=== PATIENT | female | born 1955 | race Caucasian/White ===

== ENCOUNTER 2016-06-14 13:20 | Outpatient (CLI) | payer BC | END 2016-06-14 13:21 | disposition home or self-care (01) | DX: Z12.31 Encounter for screening mammogram for malignant neoplasm of breast (principal); Z80.3 Family history of malignant neoplasm of breast ==

== ENCOUNTER 2016-06-14 13:21 | Outpatient (CLI) | payer BC | END 2016-06-14 13:22 | disposition home or self-care (01) | DX: R91.1 Solitary pulmonary nodule (principal); E87.1 Hypo-osmolality and hyponatremia; F17.200 Nicotine dependence, unspecified, uncomplicated ==

== ENCOUNTER 2016-08-22 13:40 | Emergency (ER) | payer BC ==
[2016-08-22] MEDS ORDERED: LORazepam 0.5 MG TABLET PO STA (13:46)
[2016-08-22] MEDS ORDERED: LORazepam 0.5 MG TABLET ONE (13:58)
== END 2016-08-22 14:03 | disposition home or self-care (01) ==
DX: F41.9 Anxiety disorder, unspecified (principal); W18.30XA Fall on same level, unspecified, initial encounter; Y92.239 Unspecified place in hospital as the place of occurrence of the external cause; I10 Essential (primary) hypertension; F17.200 Nicotine dependence, unspecified, uncomplicated
CPT/HCPCS: 99283; A9270

== ENCOUNTER 2016-10-11 12:19 | Emergency (ER) | payer BC ==
[2016-10-11 12:55] LABS: BASOPHILS % (AUTO) 0.3 %; EOSINOPHILS % (AUTO) 0.1 %; HCT - HEMATOCRIT 40.3 % (37.0-47.0); HGB - HEMOGLOBIN 14.1 g/dL (12.0-16.0); LYMPHOCYTES # (AUTO) 0.9 10^3/uL (1.5-3.5); LYMPHOCYTES % (AUTO) 6.8 %; MEAN CORPUSCULAR HEMOGLOBIN 31.7 pg (27.0-31.0); MEAN CORPUSCULAR HGB CONC 34.9 g/dL (32.0-36.0); MEAN PLATELET VOLUME 7.9 fL (7.9-10.8); MONOCYTES # (AUTO) 2.1 10^3/uL (0.0-1.0); MONOCYTES % (AUTO) 16.2 %; NEUTROPHILS % (AUTO) 76.6 %; RED BLOOD COUNT 4.43 10^6/uL (4.20-5.40); RED CELL DISTRIBUTION WIDTH 13.2 % (12.0-15.0)
[2016-10-11 13:09] LABS: ALBUMIN/GLOBULIN RATIO 1.1 (1.0-2.2); BILIRUBIN,TOTAL 1.3 mg/dL (0.2-1.0); CALCIUM 9.2 mg/dL (8.5-10.3); CREATININE 0.6 mg/dL (0.4-1.0); POTASSIUM 3.2 mmol/L (3.5-5.0); TOTAL PROTEIN 7.4 g/dL (6.7-8.2)
[2016-10-11] MEDS ORDERED: ONDANSETRON 4 MG/2 ML VIAL IVP STA (15:00)
[2016-10-11] MEDS ORDERED: ACETAMINOPHEN 1,000 MG/100 ML 100 ML IV STA (15:00)
[2016-10-11] MEDS ORDERED: LORazepam 0.5 MG TABLET PO STA (15:00)
--- NOTE | 2016-10-11 15:05 | ED Physician Documentation ---
History of Present Illness - Stated complaint Stated Complaint: FEVER,NOT EATING,ABD PAIN - Chief complaint Chief Complaint: Abd Pain - Additonal information Additional information: hx from pt 60 female to ER with fever generalized weakness NV vague abd discomfort dysuria and a cough for 5 days loose BM not diarrhea no blood no ill contacts travel or bad food pshx hyst and nissn fundoplication Review of Systems Constitutional: reports: Fever Cardiac: denies: Chest pain / pressure Respiratory: reports: Cough GI: reports: Abdominal Pain (discomfort not specifically painful), Nausea, Vomiting. denies: Diarrhea (loose not watery no blood), Bloody / black stool : reports: Dysuria Neurologic: reports: Generalized weakness. 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 - Present Medications Home Medications: Ambulatory Orders Medication Instructions Recorded Confirmed Amlodipine/Atorvastatin [Caduet 10 1 each PO DAILY 01/14/13 10/11/16 mg-10 mg Tablet] DULoxetine [Cymbalta] 60 mg PO DAILY 01/14/13 10/11/16 Esomeprazole Magnesium [Nexium] 40 mg PO DAILY 01/14/13 10/11/16 Fluticasone/Salmeterol [Advair 1 each IH DAILY 01/14/13 10/11/16 250-50 Diskus] Ipratropium/Albuterol Inhaler 1 puffs INH QID 01/14/13 10/11/16 [Combivent Inhaler] LORazepam INTENSOL [Ativan] 1 mg PO BID PRN 01/14/13 10/11/16 Propranolol [Inderal] 40 mg PO DAILY 01/14/13 10/11/16 Tiotropium [Spiriva] 1 puffs INH DAILY 01/14/13 10/11/16 oxyCODONE [Roxicodone] 5 mg PO Q6H PRN #10 tablet 05/12/16 10/11/16 Cephalexin [Keflex] 500 mg PO Q6H #40 capsule 10/11/16 Fosinopril Sodium 10 mg PO DAILY 10/11/16 10/11/16 Ondansetron Odt [Zofran] 4 mg TL Q6H PRN #10 tablet 10/11/16 busPIRone [Buspar] 1 tab PO DAILY 10/11/16 10/11/16 oxyCODONE [Roxicodone] 5 mg PO Q8H PRN #10 tablet 10/11/16 - Allergies Allergies/Adverse Reactions: Allergies Allergy/AdvReac Type Severity Reaction Status Date / Time No Known Drug Allergies Allergy Verified 10/11/16 12:23 - Social History Does the pt smoke?: Yes Smoking Status: Current every day smoker Does the pt drink ETOH?: Yes Does the pt have substance abuse?: No - Immunizations Immunizations are current?: Yes - POLST Patient has POLST: No PD ED PE NORMAL - Vitals Vital signs reviewed: Yes - General General: Alert and oriented X 3 - Neck Neck: Supple, no meningeal sign - Cardiac Cardiac: RRR - Respiratory Respiratory: No respiratory distress - Abdomen Abdomen: Soft, Non tender, Other (hyperactive BS, mild distension, no sig TTP) - Back Back: No: No CVA TTP - Derm Derm: Normal color - Extremities Extremities: No deformity - Neuro Neuro: Alert and oriented X 3, 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 president risk management 2-12 intact, No motor deficit, Normal speech Results - Vitals Vitals: Vital Signs - 24 hr 10/11/16 10/11/16 10/11/16 12:21 15:46 18:13 Temperature 36.3 C L Heart Rate 83 122 H 105 H Respiratory 18 20 18 Rate Blood Pressure 124/77 143/68 H 126/61 O2 Saturation 97 97 96 Oxygen O2 Source Room air - Labs Labs: Laboratory Tests 10/11/16 10/11/16 10/11/16 12:47 12:47 17:20 WBC 13.0 H RBC 4.43 Hgb 14.1 Hct 40.3 MCV 91.0 MCH 31.7 H MCHC 34.9 RDW 13.2 Plt Count 215 MPV 7.9 Neut # 10.0 H Lymph # 0.9 L Christian # 2.1 H Eos # 0.0 Baso # 0.0 Absolute Nucleated RBC 0.00 Nucleated RBCs 0.0 Sodium 121 L Potassium 3.2 L Chloride 83 L Carbon Dioxide 25 Anion Gap 13.0 BUN 8 Creatinine 0.6 Estimated GFR (MDRD) 102 Glucose 120 H Calcium 9.2 Total Bilirubin 1.3 H AST 33 ALT 27 Alkaline Phosphatase 102 Total Protein 7.4 Albumin 3.8 Globulin 3.6 Albumin/Globulin Ratio 1.1 Lipase 28 Urine Color YELLOW Urine Clarity CLOUDY Urine pH 6.0 Ur Specific [place] 1.010 Urine Protein TRACE Urine Glucose (UA) NEGATIVE Urine Ketones 15 H Urine Occult Blood SMALL H Urine Nitrite POSITIVE H Urine Bilirubin NEGATIVE Urine Urobilinogen 1 (NORMAL) Ur Leukocyte Esterase MODERATE H Urine RBC 6-10 H Urine WBC >25 H Ur Squamous Epith Cells MOD Squamous H Urine Bacteria Moderate H Ur Microscopic Review INDICATED Urine Culture Comments NOT INDICATED PD MEDICAL DECISION MAKING - ED course ED course: CT shows R kidney inflammation - possible recently passed stone, maybe pyelo? labs reviewed WBC 13, low Na not new but worse than normal, mildly low K repleted CXR neg waiting on UA pt feeling better after meds discussed hypo-na with hospitalist Dr Hoang - pt is weak nauseated etc but these sx could certainly be due to pyelo not Na - hospitalist and I discussed whether to admit pt and hospitalist advises that it pt is otherwise feeling better after IVF etc in ER and is tolerating PO could dc with close follow up Departure - Departure Disposition: Home, Self Care Clinical Impression: Pyelonephritis, Hyponatremia, Hypokalemia, Dehydration Instructions: ED Hyponatremia, ED Kidney Infec Female Follow-Up: Favio Yan DO [Primary Care Provider] - (Sunday ) Prescriptions: Cephalexin [Keflex] 500 mg PO Q6H #40 capsule oxyCODONE [Roxicodone] 5 mg PO Q8H PRN #10 tablet PRN Reason: Severe Pain Ondansetron Odt [Zofran] 4 mg TL Q6H PRN #10 tablet PRN Reason: Nausea / Vomiting Comments: The CT scan showed inflammation of the right kidney The chest xray was fine The blood work was mostly fine - your sodium and potassium are low again but that is not new. The urine test does confirm you have a kidney infection as suspected We gave you IV antibiotics in the ER and it is very important that you take the oral antibiotics at home for the next 10 days recommend tylenol and motrin for pain and fever - you can also take your oxycodone for pain if needed And I wrote a prescription for zofran to help with the nausea so you can stay hydrated - you need to drink fluids with electrolytes not just plain water - pedialyte would be a good choice Please follow up with your PMD Sunday to recheck your sodium level and again after finishing the antibiotics to repeat the urine test and be sure the infection is gone if you cannot see your doctor on Sunday please come back and see me in the ER to recheck your sodium level Return if worse - some kidney infections need to be admitted If you drink alcohol please cut down or stop - that can affect your electrolytes And also please have your PMD recheck your blood sugar - it was high today Discharge Date/Time: 10/11/16 19:15
[2016-10-11] MEDS ORDERED: ONDANSETRON 4 MG/2 ML VIAL ONE (15:07)
[2016-10-11] MEDS ORDERED: ACETAMINOPHEN 1,000 MG/100 ML 100 ML IV ONE (15:07)
[2016-10-11] MEDS ORDERED: LORazepam 0.5 MG TABLET ONE (15:07)
--- NOTE | 2016-10-11 16:00 | XRAY Preliminary Report ---
Exam: XR Chest 2 View PA/LAT IMPRESSION: Hyperinflation, otherwise unremarkable 2-view chest radiography. [facility] SITE ID: [id number]
--- NOTE | 2016-10-11 16:02 | XRAY Report ---
EXAM: CHEST RADIOGRAPHY EXAM DATE: 10/11/2016 03:15 PM. CLINICAL HISTORY: Cough. COMPARISON: 05/12/2016. TECHNIQUE: 2 views. FINDINGS: Lungs/Pleura: No focal opacities evident. No pleural effusion. No pneumothorax. Hyperinflated lungs. Mediastinum: Heart and mediastinal contours are unremarkable. Other: No bony abnormality. Upper lumbar spinal cord stimulator leads noted. IMPRESSION: Hyperinflation, otherwise unremarkable 2-view chest radiography. [facility] Referring Provider Line: [phone] SITE ID: [id number]
--- NOTE | 2016-10-11 16:15 | CT Preliminary Report ---
Exam: CT Abdomen/Pelvis W/O IMPRESSION: 1. Small hiatal hernia. 2. Right perinephric fat stranding concerning for inflammation or possibly recently passed stone, wit h no current stones or hydronephrosis. 3. Evidence of appendectomy and hysterectomy. [facility] SITE ID: [id number]
--- NOTE | 2016-10-11 16:18 | CT Report ---
EXAM: CT ABDOMEN AND PELVIS EXAM DATE: 10/11/2016 03:44 PM. CLINICAL HISTORY: Abdominal discomfort. COMPARISONS: 01/22/2014. TECHNIQUE: Routine helical CT imaging was performed through the abdomen and pelvis. IV contrast: None . Enteric contrast: No. Reconstructions: Coronal and sagittal. In accordance with CT protocol optimization, one or more of the following dose reduction techniques w ere utilized for this exam: automated exposure control, adjustment of mA and/or KV based on patient s ize, or use of iterative reconstructive technique. FINDINGS: Lung Bases: Small hiatal hernia, otherwise unremarkable. Liver: Normal. No masses. Gallbladder/Bile Ducts: Unremarkable. Spleen: Normal. Pancreas: Normal. Adrenal Glands: Normal. Kidneys: Unremarkable unenhanced left kidney. Right perinephric fat stranding without obstructing sto ne, mass, or hydronephrosis identified. Peritoneal Cavity/Bowel: Normal. No free fluid, free air or adenopathy. No masses or acute inflammato ry process. Clips from appendectomy. Pelvic Organs: Hysterectomy. Bladder unremarkable. Vasculature: No aortic enlargement. Moderate atherosclerotic calcification. Bones: Stable upper lumbar spinal cord stimulator lead. Other: None. IMPRESSION: 1. Small hiatal hernia. 2. Right perinephric fat stranding concerning for inflammation or possibly recently passed stone, wit h no current stones or hydronephrosis. 3. Evidence of appendectomy and hysterectomy. [facility] Referring Provider Line: [phone] SITE ID: [id number]
[2016-10-11] MEDS ORDERED: SODIUM CHLORIDE 0.9% 1,000 ML IV ONE (16:47)
[2016-10-11 17:28] LABS: BILIRUBIN,URINE NEGATIVE (NEGATIVE)
[2016-10-11 17:33] LABS: UA w/ MICROSCOPIC CHARGE YES
[2016-10-11 17:43] LABS: UR CULTURE IF IND NOT INDICATED; WBC,URINE >25 /HPF (0-5)
[2016-10-11] MEDS ORDERED: cefTRIAXone 1 GM in SODIUM CHLORIDE 0.9% MINIBAG 100 ML IV STA (18:10)
[2016-10-11 18:14] VITALS: BP 126/61
[2016-10-11] MEDS ORDERED: oxyCODONE 5 MG TABLET PO STA (18:25)
[2016-10-11] MEDS ORDERED: cefTRIAXone 1 GM VIAL ONE (18:25)
[2016-10-11] MEDS ORDERED: oxyCODONE 5 MG TABLET ONE (18:33)
[2016-10-11] MEDS ORDERED: POTASSIUM CHLORIDE 20 MEQ TABLET PO STA (18:41)
[2016-10-11] MEDS ORDERED: POTASSIUM CHLORIDE 20 MEQ TABLET PO ONE (19:02)
== END 2016-10-11 19:15 | disposition home or self-care (01) ==
LOC: ED 12:19
DX: N12 Tubulo-interstitial nephritis, not specified as acute or chronic (principal); E86.0 Dehydration; E87.1 Hypo-osmolality and hyponatremia; E87.6 Hypokalemia; R11.2 Nausea with vomiting, unspecified; I10 Essential (primary) hypertension; J44.9 Chronic obstructive pulmonary disease, unspecified; F17.200 Nicotine dependence, unspecified, uncomplicated
CPT/HCPCS: 36415; 71020; 74176; 80053; 81001; 83690; 85025; 96365; 96375; 99283; 99284; A9270; J0131; 81003; 87086

== ENCOUNTER 2016-12-08 11:48 | Outpatient (CLI) | payer BC | END 2016-12-08 11:49 | disposition home or self-care (01) | LOC: LAB 11:48 | PROVIDERS: ATTEND Family Medicine | DX: Z11.59 Encounter for screening for other viral diseases (principal) | CPT/HCPCS: 36415; 86803 ==

== ENCOUNTER 2017-03-01 11:20 | Emergency (ER) | payer BC ==
--- NOTE | 2017-03-01 13:56 | ED Physician Documentation ---
PD HPI BACK PAIN - Stated complaint Stated Complaint: RT SIDE PX - Chief complaint Chief Complaint: Back Pain - History obtained from History obtained from: Patient, Family - History of Present Illness Timing - onset: How many months ago (5) Timing - duration: Months (5) Timing - details: Gradual onset Pain level max: 8 Pain level now: 8 Location: Lower, Right Quality: Pain, Sharp Associated symptoms: No: Fever, Weakness, Numbness, Incontinent of urine, Unable to urinate, Hematuria, Incontinent of stool Improves with: Rest Worsened by: Movement Contributing factors: No: Lifting, Twisting, Trauma, Anticoagulated, Cancer, IVDA Similar symptoms before: Diagnosis (sciatica) Recently seen: Clinic (states is on 5mg oxycodone, but doesn't help.) - Additional information Additional information: has not had any imaging peformed Review of Systems Ten Systems: 10 systems reviewed and negative Constitutional: denies: Fever, Chills Nose: denies: Rhinorrhea / runny nose, Congestion Throat: denies: Sore throat Cardiac: denies: Chest pain / pressure Respiratory: denies: Cough GI: denies: Nausea, Vomiting, Diarrhea : denies: Dysuria, Frequency, Hesitancy, Unable to Void, Incontinent Skin: denies: Rash Musculoskeletal: denies: Neck pain Neurologic: denies: Focal weakness, Numbness, Headache, Head injury PD PAST MEDICAL HISTORY - Past Medical History Cardiovascular: Hypertension, High cholesterol Respiratory: COPD, Pneumonia Neuro: Other Endocrine/Autoimmune: None GI: GERD : None HEENT: None Psych: Depression Musculoskeletal: Fibromyalgia, Chronic back pain Derm: None - Past Surgical History Past Surgical History: Yes 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 - Present Medications Home Medications: Ambulatory Orders Medication Instructions Recorded Confirmed Amlodipine/Atorvastatin [Caduet 10 1 each PO DAILY 01/14/13 03/01/17 mg-10 mg Tablet] DULoxetine [Cymbalta] 60 mg PO DAILY 01/14/13 03/01/17 Esomeprazole Magnesium [Nexium] 40 mg PO DAILY 01/14/13 03/01/17 Fluticasone/Salmeterol [Advair 1 each IH DAILY 01/14/13 03/01/17 250-50 Diskus] Ipratropium/Albuterol Inhaler 1 puffs INH QID 01/14/13 03/01/17 [Combivent Inhaler] LORazepam INTENSOL [Ativan] 1 mg PO BID PRN 01/14/13 03/01/17 Propranolol [Inderal] 40 mg PO DAILY 01/14/13 03/01/17 Tiotropium [Spiriva] 1 puffs INH DAILY 01/14/13 03/01/17 Fosinopril Sodium 10 mg PO DAILY 10/11/16 03/01/17 Ondansetron Odt [Zofran] 4 mg TL Q6H PRN #10 tablet 10/11/16 03/01/17 busPIRone [Buspar] 1 tab PO DAILY 10/11/16 03/01/17 oxyCODONE [Roxicodone] 5 mg PO Q8H PRN #10 tablet 10/11/16 03/01/17 Cyclobenzaprine [Flexeril] 10 mg PO TID PRN #20 tablet 03/01/17 Lidocaine Patch 5% [Lidoderm Patch] 1 patch TOP DAILY PRN #10 patch 03/01/17 Meloxicam [Mobic] 7.5 mg PO BID PRN #20 tablet 03/01/17 - Allergies Allergies/Adverse Reactions: Allergies Allergy/AdvReac Type Severity Reaction Status Date / Time No Known Drug Allergies Allergy Verified 03/01/17 11:27 - Social History Does the pt smoke?: Yes Smoking Status: Current every day smoker Does the pt drink ETOH?: Yes Does the pt have substance abuse?: No - Immunizations Immunizations are current?: Yes - POLST Patient has POLST: No PD ED PE NORMAL - Vitals Vital signs reviewed: Yes - General General: Alert and oriented X 3, No acute distress, Well developed/nourished - HEENT HEENT: PERRL, Moist mucous membranes - Neck Neck: Supple, no meningeal sign - Cardiac Cardiac: RRR - Respiratory Respiratory: No respiratory distress, Clear bilaterally - Abdomen Abdomen: Soft, Non tender, Non distended - Back Back: Other (mild low lumbar TTP.) - Derm Derm: Warm and dry - Extremities Extremities: No tenderness to palpate, Normal ROM s pain, No edema, Other (TTP over the R buttock. NVI.) - Neuro Neuro: Alert and oriented X 3, milk tester 2-12 intact, No motor deficit, No sensory deficit - Psych Psych: Normal mood, Normal affect Results - Vitals Vitals: Vital Signs - 24 hr 03/01/17 03/01/17 11:24 15:32 Temperature 36.4 C L Heart Rate 84 89 Respiratory 16 14 Rate Blood Pressure 149/87 H 140/78 H O2 Saturation 100 98 Oxygen O2 Source Room air - Rads (name of study) L spine xray Radiology: Prelim report reviewed, EMP read contemporaneously, See rad report ( Partial transitional vertebra with left pseudoarthrosis. Degenerative and other chronic findings. No acute disease. ) R hip xray Radiology: Prelim report reviewed, EMP read contemporaneously, See rad report ( Normal pelvis and hip radiography. ) PD MEDICAL DECISION MAKING - ED course Complexity details: reviewed results, re-evaluated patient, considered differential (no cauda equina, no spinal epidural abscess, no fracture, no aortic dissection or evidence of aneursym rupture), d/w patient, d/w family ED course: Patient is a 61-year-old female who presents to the emergency department with sciatica, appears chronic. Has not had any imaging performed and stated that this has been different for the past 5 years than her history of back pain, therefore imaging was performed. No acute findings on imaging. Feels better after Toradol and Flexeril. Will mobic and flexeril for home as well. Ambulating well. No evidence of cauda equina. Patient counseled regarding signs and symptoms for which I believe and urgent re-evaluation would be necessary. Patient with good understanding of and agreement to plan and is comfortable going home at this time This document was made in part using voice recognition software. While efforts are made to proofread this document, sound alike and grammatical errors may occur. Departure - Departure Disposition: Home, Self Care Clinical Impression: Sciatica Qualifiers: Laterality: right Qualified Code(s): M54.31 - Sciatica, right side Condition: Good Instructions: ED Sciatica Follow-Up: Favio Yan DO [Primary Care Provider] - Within 1 week Prescriptions: Cyclobenzaprine [Flexeril] 10 mg PO TID PRN #20 tablet PRN Reason: Spasms Lidocaine Patch 5% [Lidoderm Patch] 1 patch TOP DAILY PRN #10 patch PRN Reason: pain Meloxicam [Mobic] 7.5 mg PO BID PRN #20 tablet PRN Reason: pain Comments: You can also try a foam roller at home to help relieve the pain in your muscles from the sciatica. Return if you worsen. Discharge Date/Time: 03/01/17 15:33
[2017-03-01] MEDS ORDERED: CYCLOBENZAPRINE 10 MG TABLET PO STA (14:07)
[2017-03-01] MEDS ORDERED: KETOROLAC 60 MG/2 ML VIAL IM STA (14:07)
[2017-03-01] MEDS ORDERED: KETOROLAC 60 MG/2 ML VIAL ONE (14:22)
[2017-03-01] MEDS ORDERED: CYCLOBENZAPRINE 10 MG TABLET PO ONE (14:22)
--- NOTE | 2017-03-01 14:50 | XRAY Preliminary Report ---
Exam: XR LUMBAR SPINE 2 VIEW IMPRESSION: 1. Partial transitional vertebra with left pseudoarthrosis. 2. Degenerative and other chronic findings. No acute disease. [facility] SITE ID: [id number]
--- NOTE | 2017-03-01 14:52 | XRAY Preliminary Report ---
Exam: XR HIP W/PELVIS 2-3V RT IMPRESSION: Normal pelvis and hip radiography. [facility] SITE ID: [id number]
--- NOTE | 2017-03-01 14:52 | XRAY Report ---
EXAM: LUMBOSACRAL SPINE RADIOGRAPHY EXAM DATE: 03/01/2017 02:39 PM. CLINICAL HISTORY: R low back pain, no injury. COMPARISONS: None. TECHNIQUE: 2 views. FINDINGS: Alignment: Normal. No spondylolisthesis or scoliosis. Bones: Hypertrophy of left L5 transverse process with pseudarthrosis S1 on the left. 4 other lumbar v ertebrae. No fractures or bone lesions. Disks: Normal. Disk heights are maintained. Facets: Degenerative changes most marked at L4-L5 and L5-S1. Sacroiliac Joints: Unremarkable. Soft Tissues: Neurostimulator on the left with intact leads entering the spine at the T11-T12 level, tip at L2. Vascular calcifications. IMPRESSION: 1. Partial transitional vertebra with left pseudoarthrosis. 2. Degenerative and other chronic findings. No acute disease. [facility] Referring Provider Line: [phone] SITE ID: [id number]
--- NOTE | 2017-03-01 14:54 | XRAY Report ---
EXAM: RIGHT HIP AND PELVIS RADIOGRAPHY EXAM DATE: 03/01/2017 02:38 PM. HISTORY: R hip pain, no injury. COMPARISONS: None. TECHNIQUE: 1 view of the pelvis and 1 view of the hip. FINDINGS: Bones: Normal. No fracture or bone lesion. Partial transitional vertebra with left pseudarthrosis as previously described. Joints: The bilateral hip, pubis symphysis, and sacroiliac joints are preserved. Soft Tissues: Unremarkable. IMPRESSION: Normal pelvis and hip radiography. [facility] Referring Provider Line: [phone] SITE ID: [id number]
[2017-03-01 15:34] VITALS: BP 140/78
== END 2017-03-01 15:33 | disposition home or self-care (01) ==
LOC: ED 11:20
DX: M54.31 Sciatica, right side (principal); I10 Essential (primary) hypertension; E78.00 Pure hypercholesterolemia, unspecified; M79.7 Fibromyalgia; F17.200 Nicotine dependence, unspecified, uncomplicated
CPT/HCPCS: 72100; 73502; 96372; 99283; 99284; A9270

== ENCOUNTER 2017-06-10 18:07 | Emergency (ER) | payer BC ==
[2017-06-10] MEDS ORDERED: SODIUM CHLORIDE 0.9% 1,000 ML IV ONE ×3 (18:28→21:27)
[2017-06-10 18:59] LABS: BASOPHILS # (AUTO) 0.1 10^3/uL (0.0-0.1); BASOPHILS % (AUTO) 0.8 %; EOSINOPHILS % (AUTO) 0.3 %; LYMPHOCYTES # (AUTO) 0.7 10^3/uL (1.5-3.5); LYMPHOCYTES % (AUTO) 8.3 %; MEAN CORPUSCULAR HEMOGLOBIN 31.2 pg (27.0-31.0); MEAN CORPUSCULAR HGB CONC 35.1 g/dL (32.0-36.0); MEAN PLATELET VOLUME 6.6 fL (7.9-10.8); MONOCYTES # (AUTO) 0.7 10^3/uL (0.0-1.0); NEUTROPHILS # (AUTO) 7.2 10^3/uL (1.5-6.6); NEUTROPHILS % (AUTO) 82.6 %; PLT - PLATELET COUNT 396 10^3/uL (130-450); RED BLOOD COUNT 4.18 10^6/uL (4.20-5.40); RED CELL DISTRIBUTION WIDTH 13.7 % (12.0-15.0); WHITE BLOOD COUNT 8.8 x10^3/uL (4.8-10.8)
[2017-06-10 19:13] LABS: ALBUMIN 3.1 g/dL (3.2-5.5); ALBUMIN/GLOBULIN RATIO 1.1 (1.0-2.2); BILIRUBIN,TOTAL 0.8 mg/dL (0.2-1.0); CALCIUM 8.2 mg/dL (8.5-10.3); CREATININE 0.6 mg/dL (0.4-1.0)
[2017-06-10] MEDS ORDERED: MORPHINE 2 MG/ML CARPUJECT IVP STA (19:59)
[2017-06-10] MEDS ORDERED: POTASSIUM BICARB 25 MEQ TABLET PO STA (19:59)
--- NOTE | 2017-06-10 20:07 | ED Physician Documentation ---
PD HPI ABD PAIN - Stated complaint Stated Complaint: DIARRHEA/SORE ON BOTTOM - Chief complaint Chief Complaint: Abd Pain - History obtained from History obtained from: Patient, Family - History of Present Illness Timing - onset: How many weeks ago (3) Timing - duration: Weeks (3) Timing - details: Gradual onset Pain level max: 7 Pain level now: 6 Quality: Aching, Pain, Other (rectal pain) Improved by: Other (nothing) Worsened by: Other (nothing) Associated symptoms: Diarrhea. No: Fever, Nausea, Vomiting, Hematemesis, Constipation, Melena, Hematochezia, Dysuria, Hematuria Similar symptoms before: Diagnosis (chronic diarrhea, unclear cause.) Recently seen: Not recently seen - Additional information Additional information: Patient is a 61-year-old female who presents to the emergency department with diarrhea for the past 3 weeks. She states 10-12 times a day. Nonbloody. Has developed rectal pain over the past few days as well. No fevers. No vomiting but occasional nausea. Has had diarrhea for several years, multiple colonoscopies and stool studies without cause found. She also states she has mild dysuria. Review of Systems Ten Systems: 10 systems reviewed and negative Constitutional: denies: Fever, Chills Nose: denies: Rhinorrhea / runny nose, Congestion Throat: denies: Sore throat Cardiac: denies: Chest pain / pressure Respiratory: denies: Cough, Wheezing Skin: denies: Rash Musculoskeletal: denies: Neck pain, Back pain Neurologic: denies: Headache PD PAST MEDICAL HISTORY - Past Medical History Cardiovascular: Hypertension, High cholesterol Respiratory: COPD, Pneumonia Neuro: Other Endocrine/Autoimmune: None GI: GERD : None HEENT: None Psych: Depression, Anxiety Musculoskeletal: Fibromyalgia, Chronic back pain Derm: None - Past Surgical History Past Surgical History: Yes 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 - Present Medications Home Medications: Ambulatory Orders Medication Instructions Recorded Confirmed Amlodipine/Atorvastatin [Caduet 10 1 each PO DAILY 01/14/13 03/01/17 mg-10 mg Tablet] DULoxetine [Cymbalta] 60 mg PO DAILY 01/14/13 03/01/17 Esomeprazole Magnesium [Nexium] 40 mg PO DAILY 01/14/13 03/01/17 Fluticasone/Salmeterol [Advair 1 each IH DAILY 01/14/13 03/01/17 250-50 Diskus] Ipratropium/Albuterol Inhaler 1 puffs INH QID 01/14/13 03/01/17 [Combivent Inhaler] LORazepam INTENSOL [Ativan] 1 mg PO BID PRN 01/14/13 03/01/17 Propranolol [Inderal] 40 mg PO DAILY 01/14/13 03/01/17 Tiotropium [Spiriva] 1 puffs INH DAILY 01/14/13 03/01/17 Fosinopril Sodium 10 mg PO DAILY 10/11/16 03/01/17 Ondansetron Odt [Zofran] 4 mg TL Q6H PRN #10 tablet 10/11/16 03/01/17 busPIRone [Buspar] 1 tab PO DAILY 10/11/16 03/01/17 oxyCODONE [Roxicodone] 5 mg PO Q8H PRN #10 tablet 10/11/16 03/01/17 Cyclobenzaprine [Flexeril] 10 mg PO TID PRN #20 tablet 03/01/17 Lidocaine Patch 5% [Lidoderm Patch] 1 patch TOP DAILY PRN #10 patch 03/01/17 Meloxicam [Mobic] 7.5 mg PO BID PRN #20 tablet 03/01/17 Cephalexin [Keflex] 500 mg PO Q6H #28 capsule 06/10/17 Hydrocortisone Acetate [Proctocort] 30 mg RC BID PRN #20 supp.rect 06/10/17 Nystatin/Triamcin 1 applic TP BID PRN #1 cream..g. 06/10/17 [Nystatin-Triamcinolone Cream] Potassium Bicarbonate 25 meq PO DAILY #10 tablet 06/10/17 [K-Effervescent] - Allergies Allergies/Adverse Reactions: Allergies Allergy/AdvReac Type Severity Reaction Status Date / Time No Known Drug Allergies Allergy Verified 03/01/17 11:27 - Social History Does the pt smoke?: Yes Smoking Status: Current every day smoker Does the pt drink ETOH?: Yes ETOH Use: Other (daily drinker. states 3-6 beers/wine per day. ) Does the pt have substance abuse?: No - Family History Family history: reports: Non contributory - Immunizations Immunizations are current?: Yes - POLST Patient has POLST: No PD ED PE NORMAL - Vitals Vital signs reviewed: Yes - General General: Alert and oriented X 3, No acute distress - HEENT HEENT: Other (dry lips) - Neck Neck: Supple, no meningeal sign - Cardiac Cardiac: RRR - Respiratory Respiratory: No respiratory distress, Clear bilaterally - Abdomen Abdomen: Soft, Non distended, Other (mild diffuse TTP. no peritoneal signs.) - Rectal Rectal: Other (small hemorrhoid, external. non-thrombosed. non-bleeding. Zeenat JORGENSEN present.) - Back Back: No spinal TTP - Derm Derm: Warm and dry, Other (diffuse erythematous skin breakdown on the buttocks and perineal area. ) - Extremities Extremities: No edema, No calf tenderness / cord - Neuro Neuro: Alert and oriented X 3 - Psych Psych: Normal mood, Normal affect Results - Vitals Vitals: Vital Signs - 24 hr 06/10/17 06/10/17 06/10/17 18:18 19:52 20:43 Temperature 36.2 C L 36.4 C L Heart Rate 130 H 111 H 95 Respiratory 18 20 20 Rate Blood Pressure 125/83 H 133/86 H 127/96 H O2 Saturation 99 99 99 06/10/17 21:34 Temperature 36.9 C Heart Rate 115 H Respiratory 20 Rate Blood Pressure 137/96 H O2 Saturation 100 Oxygen O2 Source Room air - Labs Labs: Laboratory Tests 06/10/17 06/10/17 06/10/17 18:53 18:53 20:43 WBC 8.8 RBC 4.18 L Hgb 13.0 Hct 37.2 MCV 89.0 MCH 31.2 H MCHC 35.1 RDW 13.7 Plt Count 396 MPV 6.6 L Neut # 7.2 H Lymph # 0.7 L [place] # 0.7 Eos # 0.0 Baso # 0.1 Absolute Nucleated RBC 0.01 Nucleated RBC % 0.1 Sodium 126 L Potassium 2.4 L* Chloride 88 L Carbon Dioxide 20 L Anion Gap 18.0 H BUN 5 L Creatinine 0.6 Estimated GFR (MDRD) 102 Glucose 109 H Calcium 8.2 L Total Bilirubin 0.8 AST 36 ALT 25 Alkaline Phosphatase 130 H Total Protein 6.0 L Albumin 3.1 L Globulin 2.9 Albumin/Globulin Ratio 1.1 Lipase 43 Urine Color YELLOW Urine Clarity CLOUDY Urine pH 6.0 Ur Specific [place] <=1.005 Urine Protein NEGATIVE Urine Glucose (UA) NEGATIVE Urine Ketones NEGATIVE Urine Occult Blood SMALL H Urine Nitrite POSITIVE H Urine Bilirubin NEGATIVE Urine Urobilinogen 0.2 (NORMAL) Ur Leukocyte Esterase LARGE H Urine RBC 6-10 H Urine WBC >25 H Ur Squamous Epith Cells NONE SEEN Urine Bacteria Many H Ur Microscopic Review INDICATED Urine Culture Comments INDICATED - Rads (name of study) CT abd/pelvis Radiology: Prelim report reviewed, EMP read contemporaneously, See rad report ( Trace free fluid in the pelvis of unclear significance. No abscess or pneumoperitoneum. 2. Fatty hypertrophy in the wall of the terminal ileum. Mildly prominent wall thickness of the sigmoid and left colon in the setting of incomplete distention. However, no significant adjacent fat stranding. Findings may be chronic. 3. Status post hysterectomy. 4. Small incidental hiatal hernia. ) PD MEDICAL DECISION MAKING - ED course Complexity details: reviewed old records, reviewed results, re-evaluated patient , considered differential, d/w patient, d/w family ED course: Patient is a 61-year-old female who presents to the emergency department with what appears to be worsening of her chronic diarrhea. She was unable to give a stool sample during her emergency department stay. We will place her on Proctocort for the hemorrhoids as well as a clotrimazole cream for barrier cream for her perineal area. She feels better after IV fluids. Has chronic hyponatremia. She also has chronic hypokalemia, potassium was replaced orally and will place on potassium for home. We will have her follow-up closely with her doctor for further evaluation and care. She is adamant that she does not want to stay in the hospital. She is also found to have a UTI, given an IV dose of Rocephin will place on Keflex for home. She is well-appearing, nontoxic. Afebrile. Heart rate decreased. Patient and family counseled regarding signs and symptoms for which I believe and urgent re-evaluation would be necessary. Patient with good understanding of and agreement to plan and is comfortable going home at this time This document was made in part using voice recognition software. While efforts are made to proofread this document, sound alike and grammatical errors may occur. Departure - Departure Disposition: 01 Home, Self Care Clinical Impression: Hyponatremia, Hypokalemia, Diarrhea, Dehydration Hemorrhoid Qualifiers: Hemorrhoid type: unspecified Qualified Code(s): K64.9 - Unspecified hemorrhoids Condition: Stable Instructions: Diarrhea, ED Hemorrhoids, ED Potassium Deficiency Follow-Up: Favio Yan DO [Primary Care Provider] - Within 3 Days Prescriptions: Cephalexin [Keflex] 500 mg PO Q6H #28 capsule Hydrocortisone Acetate [Proctocort] 30 mg RC BID PRN #20 supp.rect PRN Reason: rectal pain Nystatin/Triamcin [Nystatin-Triamcinolone Cream] 1 applic TP BID PRN #1 cream..g. PRN Reason: buttock rash Potassium Bicarbonate [K-Effervescent] 25 meq PO DAILY #10 tablet Comments: You need your sodium and potassium rechecked in 3 days with your doctor. Drink plenty of fluids. Return if you worsen. You would also likely benefit from seeing GI for your chronic diarrhea and medications to help manage this. Discharge Date/Time: 06/10/17 21:59
[2017-06-10] MEDS ORDERED: IOPAMIDOL-300 100 ML VIAL ONE (20:13)
[2017-06-10] MEDS ORDERED: MORPHINE 2 MG/ML CARPUJECT ONE (20:17)
[2017-06-10] MEDS ORDERED: IOPAMIDOL-300 100 ML VIAL IVP ONE (20:32)
[2017-06-10 20:52] LABS: BILIRUBIN,URINE NEGATIVE (NEGATIVE); GLUCOSE, URINE (UA) NEGATIVE (NEGATIVE); KETONES,URINE (UA) NEGATIVE (NEGATIVE); LEUKOCYTE ESTERASE, URINE LARGE (NEGATIVE); NITRITE,URINE POSITIVE (NEGATIVE); OCCULT BLOOD,URINE SMALL (NEGATIVE); PROTEIN,URINE NEGATIVE (NEGATIVE); UROBILINOGEN,URINE 0.2 (NORMAL) E.U./dL (NORMAL)
[2017-06-10 20:58] LABS: CLARITY,URINE CLOUDY (CLEAR)
[2017-06-10 21:08] LABS: BACTERIA,URINE Many /HPF (None Seen); SQUAMOUS EPITHELIAL CELL,UR NONE SEEN (<= Few)
[2017-06-10] MEDS ORDERED: cefTRIAXone 1 GM VIAL IVP STA (21:22)
--- NOTE | 2017-06-10 21:23 | CT Preliminary Report ---
Exam: CT ABDOMEN/PELVIS W/ IMPRESSION: 1. Trace free fluid in the pelvis of unclear significance. No abscess or pneumoperitoneum. 2. Fatty hypertrophy in the wall of the terminal ileum. A prominent wall thickness of the sigmoid and left colon the setting of incomplete distention. However, no significant adjacent fat stranding. Fin dings may be chronic. 3. Status post hysterectomy. 4. Small incidental hiatal hernia. [facility] SITE ID: [id number]
--- NOTE | 2017-06-10 21:36 | CT Report ---
EXAM: CT ABDOMEN AND PELVIS EXAM DATE: 06/10/2017 08:43 PM. CLINICAL HISTORY: Lower abdominal pain, diarrhea. COMPARISONS: 10/11/2016. TECHNIQUE: Routine helical CT imaging was performed through the abdomen and pelvis. IV contrast: 100 mL Isovue 300. Enteric contrast: No. Reconstructions: Coronal and sagittal. In accordance with CT protocol optimization, one or more of the following dose reduction techniques w ere utilized for this exam: automated exposure control, adjustment of mA and/or KV based on patient s ize, or use of iterative reconstructive technique. FINDINGS: Lung Bases: Lung bases are clear. Small hiatal hernia is noted. Liver: Fatty liver. No mass. Gallbladder/Bile Ducts: Unremarkable. Spleen: Normal. Pancreas: Normal. Adrenal Glands: Normal. Kidneys: Normal. No masses or hydronephrosis. Peritoneal Cavity/Bowel: No bowel dilation, pneumoperitoneum, ascites or bulky adenopathy. Previous a ppendectomy. Scattered colonic diverticula. The colonic wall of the sigmoid colon and left colon are mildly thickened in the setting of incomplete distention. No definite pericolonic inflammation noted. Mildly hyperemic mucosa and mild wall thickening in the terminal ileum. There is wall fatty hypertro phy in the terminal ileum. Again, no significant inflammation. Pelvic Organs: Uterus is absent. Normal bladder. No ascites, pelvic mass or adenopathy. Small amount of fluid is present in the pelvis. Vasculature: Diffuse atheromatous plaques are present in the abdominal aorta and branch vessels. No a neurysm. Normal IVC. Bones: Previous T11 and T12 laminectomy with placement of intrathecal device. No osteoblastic or oste olytic lesions. Other: None. IMPRESSION: 1. Trace free fluid in the pelvis of unclear significance. No abscess or pneumoperitoneum. 2. Fatty hypertrophy in the wall of the terminal ileum. Mildly prominent wall thickness of the sigmoi d and left colon in the setting of incomplete distention. However, no significant adjacent fat strand ing. Findings may be chronic. 3. Status post hysterectomy. 4. Small incidental hiatal hernia. [facility] Referring Provider Line: [phone] SITE ID: [id number]
[2017-06-10 21:44] VITALS: BP 137/96
== END 2017-06-10 21:59 | disposition home or self-care (01) ==
LOC: ED 18:07
DX: E87.1 Hypo-osmolality and hyponatremia (principal); E87.6 Hypokalemia; R19.7 Diarrhea, unspecified; E86.0 Dehydration; K64.9 Unspecified hemorrhoids; I10 Essential (primary) hypertension; E78.00 Pure hypercholesterolemia, unspecified; F17.200 Nicotine dependence, unspecified, uncomplicated
CPT/HCPCS: 36415; 74177; 80053; 81001; 83690; 85025; 87086; 87181; 96361; 96374; 96375; 99283; 99284; A9270; Q9967; 81003

== ENCOUNTER 2017-06-14 18:20 | Emergency (ER) | payer BC ==
--- NOTE | 2017-06-14 18:53 | ED Physician Documentation ---
PD HPI NVD - Stated complaint Stated Complaint: DIARRHEA - Chief complaint Chief Complaint: Abd Pain - History obtained from History obtained from: Patient, Family - History of Present Illness Timing - onset: Other (She has chronic recurrent diarrhea status post negative workups including colonoscopy. She was seen here recently for same, blood work was notable for significant hypokalemia which was repleted. She continues to have diarrhea and they note that now she has a rectal mass, they show me a picture on their phone and it is consistent with rectal prolapse. No abdominal pain.) Review of Systems Constitutional: denies: Fever, Chills Nose: denies: Rhinorrhea / runny nose, Congestion GI: reports: Diarrhea. 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 - Present Medications Home Medications: Ambulatory Orders Medication Instructions Recorded Confirmed Amlodipine/Atorvastatin [Caduet 10 1 each PO DAILY 01/14/13 03/01/17 mg-10 mg Tablet] DULoxetine [Cymbalta] 60 mg PO DAILY 01/14/13 03/01/17 Esomeprazole Magnesium [Nexium] 40 mg PO DAILY 01/14/13 03/01/17 Fluticasone/Salmeterol [Advair 1 each IH DAILY 01/14/13 03/01/17 250-50 Diskus] Ipratropium/Albuterol Inhaler 1 puffs INH QID 01/14/13 03/01/17 [Combivent Inhaler] LORazepam INTENSOL [Ativan] 1 mg PO BID PRN 01/14/13 03/01/17 Propranolol [Inderal] 40 mg PO DAILY 01/14/13 03/01/17 Tiotropium [Spiriva] 1 puffs INH DAILY 01/14/13 03/01/17 Fosinopril Sodium 10 mg PO DAILY 10/11/16 03/01/17 Ondansetron Odt [Zofran] 4 mg TL Q6H PRN #10 tablet 10/11/16 03/01/17 busPIRone [Buspar] 1 tab PO DAILY 10/11/16 03/01/17 oxyCODONE [Roxicodone] 5 mg PO Q8H PRN #10 tablet 10/11/16 03/01/17 Cyclobenzaprine [Flexeril] 10 mg PO TID PRN #20 tablet 03/01/17 Lidocaine Patch 5% [Lidoderm Patch] 1 patch TOP DAILY PRN #10 patch 03/01/17 Meloxicam [Mobic] 7.5 mg PO BID PRN #20 tablet 03/01/17 Cephalexin [Keflex] 500 mg PO Q6H #28 capsule 06/10/17 Hydrocortisone Acetate [Proctocort] 30 mg RC BID PRN #20 supp.rect 06/10/17 Nystatin/Triamcin 1 applic TP BID PRN #1 cream..g. 06/10/17 [Nystatin-Triamcinolone Cream] Potassium Bicarbonate 25 meq PO DAILY #10 tablet 06/10/17 [K-Effervescent] Cholestyramine [Questran] 4 gm PO DAILY #10 packet 06/14/17 Magnesium Oxide 400 mg PO BID #20 tablet 06/14/17 - Allergies Allergies/Adverse Reactions: Allergies Allergy/AdvReac Type Severity Reaction Status Date / Time No Known Drug Allergies Allergy Verified 03/01/17 11:27 - Social History Does the pt smoke?: Yes Smoking Status: Current every day smoker Does the pt drink ETOH?: Yes Does the pt have substance abuse?: No - Immunizations Immunizations are current?: Yes - POLST Patient has POLST: No PD ED PE NORMAL - Vitals Vital signs reviewed: Yes - General General: Alert and oriented X 3, No acute distress - Neck Neck: Supple, no meningeal sign, No bony TTP - Abdomen Abdomen: Normal bowel sounds, Soft, Non tender - Rectal Rectal: Other (Brie RN, v loose sphincter, no prolapse now.) - Extremities Extremities: No edema, No calf tenderness / cord - Neuro Neuro: Alert and oriented X 3, Normal speech - Psych Psych: Normal mood, Normal affect Results - Vitals Vitals: Vital Signs - 24 hr 06/14/17 18:25 Temperature 35.5 C L Heart Rate 109 H Respiratory 18 Rate Blood Pressure 131/73 H O2 Saturation 99 Oxygen O2 Source Room air - Labs Labs: Laboratory Tests 06/14/17 06/14/17 18:55 18:55 WBC 8.9 RBC 3.97 L Hgb 12.4 Hct 36.9 L MCV 93.0 MCH 31.3 H MCHC 33.7 RDW 14.1 Plt Count 421 MPV 6.8 L Neut # 6.5 Lymph # 1.5 [place] # 0.6 Eos # 0.2 Baso # 0.1 Absolute Nucleated RBC 0.00 Nucleated RBC % 0.0 Sodium 123 L Potassium 3.0 L Chloride 89 L Carbon Dioxide 22 Anion Gap 12.0 BUN < 5 L Creatinine 0.4 Estimated GFR (MDRD) 162 Glucose 110 H Calcium 7.3 L Magnesium 0.7 L* Total Bilirubin 0.3 AST 35 ALT 26 Alkaline Phosphatase 108 Total Protein 5.4 L Albumin 2.7 L Globulin 2.7 Albumin/Globulin Ratio 1.0 Lipase 22 Ethyl Alcohol 147.3 PD MEDICAL DECISION MAKING - ED course ED course: 61-year-old woman with history of subacute to chronic diarrhea with exacerbation , recent visit to the emergency department with significant electrolyte abnormalities returns with apparent rectal prolapse that is intermittent and not present on exam now and continued diarrhea. We collected a stool sample and sent to the lab for studies. Lab work notable now for significant hypomagnesemia and hyponatremia and moderate hypokalemia. The magnesium was repleted IV and she was given oral thiamine and IV fluids and oral potassium. I suspect many of her electrolyte imbalances are not from the diarrhea as much as they are from alcoholism corroborated by a blood alcohol of 147 tonight and cessation of alcohol was encouraged. Especially considering she is on chronic pain medication. Departure - Departure Disposition: 01 Home, Self Care Clinical Impression: Hypomagnesemia, Hyponatremia, Hypokalemia, Rectal prolapse Diarrhea Qualifiers: Diarrhea type: presumed infectious Qualified Code(s): R19.7 - Diarrhea, unspecified Alcohol intoxication Qualifiers: Complication of substance-induced condition: uncomplicated Qualified Code(s): F10.920 - Alcohol use, unspecified with intoxication, uncomplicated Condition: Good Record reviewed to determine appropriate education?: Yes Instructions: ED Alcohol Intoxication, ED Gastroenteritis Viral Prescriptions: Cholestyramine [Questran] 4 gm PO DAILY #10 packet Magnesium Oxide 400 mg PO BID #20 tablet Comments: Continue the potassium supplement. Also add the magnesium supplement. As discussed I think a lot of these issues you are dealing with will go away if you stop abusing alcohol. Return if worse. Follow-up with your physician. We will call if any of the stool studies are positive.
[2017-06-14 19:09] LABS: BASOPHILS # (AUTO) 0.1 10^3/uL (0.0-0.1); BASOPHILS % (AUTO) 1.1 %; EOSINOPHILS # (AUTO) 0.2 10^3/uL (0.0-0.7); EOSINOPHILS % (AUTO) 1.9 %; HGB - HEMOGLOBIN 12.4 g/dL (12.0-16.0); LYMPHOCYTES # (AUTO) 1.5 10^3/uL (1.5-3.5); LYMPHOCYTES % (AUTO) 16.8 %; MEAN CORPUSCULAR HEMOGLOBIN 31.3 pg (27.0-31.0); MEAN CORPUSCULAR HGB CONC 33.7 g/dL (32.0-36.0); MEAN PLATELET VOLUME 6.8 fL (7.9-10.8); MONOCYTES # (AUTO) 0.6 10^3/uL (0.0-1.0); NEUTROPHILS # (AUTO) 6.5 10^3/uL (1.5-6.6); NEUTROPHILS % (AUTO) 73.2 %; PLT - PLATELET COUNT 421 10^3/uL (130-450); RED BLOOD COUNT 3.97 10^6/uL (4.20-5.40); RED CELL DISTRIBUTION WIDTH 14.1 % (12.0-15.0); WHITE BLOOD COUNT 8.9 x10^3/uL (4.8-10.8)
[2017-06-14] MEDS ORDERED: CHOLESTYRAMINE 4 GM PACKET PO STA (19:09)
[2017-06-14] MEDS ORDERED: oxyCOD/ACETAMIN 5 MG/325 MG TABLET PO STA (19:09)
[2017-06-14 19:22] LABS: ALBUMIN 2.7 g/dL (3.2-5.5); ALKALINE PHOSPHATASE 108 IU/L (42-121); ALT ALANINE AMINOTRANSFERASE 26 IU/L (10-60); AST ASPARTATE AMINOTRANSFERASE 35 IU/L (10-42); BILIRUBIN,TOTAL 0.3 mg/dL (0.2-1.0); BUN - BLOOD UREA NITROGEN < 5 mg/dL (6-20); CALCIUM 7.3 mg/dL (8.5-10.3); CARBON DIOXIDE - CO2 22 mmol/L (21-32); CHLORIDE 89 mmol/L (101-111); CREATININE 0.4 mg/dL (0.4-1.0); GFR - MDRD 162 (>89); GLUCOSE 110 mg/dL (70-100); LIPASE 22 U/L (22-51); SODIUM 123 mmol/L (135-145); TOTAL PROTEIN 5.4 g/dL (6.7-8.2)
[2017-06-14 19:24] LABS: MAGNESIUM 0.7 mg/dL (1.7-2.8)
[2017-06-14] MEDS ORDERED: THIAMINE 100 MG TABLET PO STA (19:25)
[2017-06-14] MEDS ORDERED: MAGNESIUM SULFATE 2 GRAM 2 GM/50 ML BAG IV ONE (19:25)
[2017-06-14] MEDS ORDERED: POTASSIUM BICARB 25 MEQ TABLET PO STA (19:25)
[2017-06-14] MEDS ORDERED: SODIUM CHLORIDE 0.9% 1,000 ML IV ONE (19:31)
[2017-06-14 20:48] VITALS: BP 139/74
== END 2017-06-14 21:03 | disposition home or self-care (01) ==
LOC: ED 18:20
DX: E83.42 Hypomagnesemia (principal); E87.1 Hypo-osmolality and hyponatremia; E87.6 Hypokalemia; K62.3 Rectal prolapse; R19.7 Diarrhea, unspecified; F10.920 Alcohol use, unspecified with intoxication, uncomplicated; Y90.6 Blood alcohol level of 120-199 mg/100 ml; I10 Essential (primary) hypertension; E78.00 Pure hypercholesterolemia, unspecified; F17.200 Nicotine dependence, unspecified, uncomplicated
CPT/HCPCS: 36415; 80053; 80320; 83690; 83735; 85025; 87045; 87046; 87493; 96365; 99283; 99284; A9270

== ENCOUNTER 2017-11-07 03:02 | Emergency (ER) | payer BC ==
--- NOTE | 2017-11-07 03:56 | ED Physician Documentation ---
PD HPI DYSPNEA - Stated complaint Stated Complaint: COUGH,SOA - Chief complaint Chief Complaint: Resp - History obtained from History obtained from: Patient - History of Present Illness Timing - onset: How many days ago (2-3) Timing - details: Gradual onset, Intermittant Pain level max: 7 Pain level now: 2 Worsened by: Coughing Associated symptoms: Cough, Chest pain / discomfort Recently seen: Not recently seen - Additional information Additional information: complains of cough times two or three days, with mild left chest pain. Tonight she was lying in bed, turned to her left side, and had sudden, severe left chest wall pain. Chest pain is worse with palpation and coughing. Review of Systems Constitutional: reports: Reviewed and negative Cardiac: reports: Chest pain / pressure. denies: Palpitations, Pedal edema Respiratory: reports: Cough. 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 - Present Medications Home Medications: Ambulatory Orders Medication Instructions Recorded Confirmed Amlodipine/Atorvastatin [Caduet 10 1 each PO DAILY 01/14/13 03/01/17 mg-10 mg Tablet] DULoxetine [Cymbalta] 60 mg PO DAILY 01/14/13 03/01/17 Esomeprazole Magnesium [Nexium] 40 mg PO DAILY 01/14/13 03/01/17 Fluticasone/Salmeterol [Advair 1 each IH DAILY 01/14/13 03/01/17 250-50 Diskus] Ipratropium/Albuterol Inhaler 1 puffs INH QID 01/14/13 03/01/17 [Combivent Inhaler] LORazepam INTENSOL [Ativan] 1 mg PO BID PRN 01/14/13 03/01/17 Propranolol [Inderal] 40 mg PO DAILY 01/14/13 03/01/17 Tiotropium [Spiriva] 1 puffs INH DAILY 01/14/13 03/01/17 Fosinopril Sodium 10 mg PO DAILY 10/11/16 03/01/17 Ondansetron Odt [Zofran] 4 mg TL Q6H PRN #10 tablet 10/11/16 03/01/17 busPIRone [Buspar] 1 tab PO DAILY 10/11/16 03/01/17 oxyCODONE [Roxicodone] 5 mg PO Q8H PRN #10 tablet 10/11/16 03/01/17 Cyclobenzaprine [Flexeril] 10 mg PO TID PRN #20 tablet 03/01/17 Lidocaine Patch 5% [Lidoderm Patch] 1 patch TOP DAILY PRN #10 patch 03/01/17 Meloxicam [Mobic] 7.5 mg PO BID PRN #20 tablet 03/01/17 Cephalexin [Keflex] 500 mg PO Q6H #28 capsule 06/10/17 Hydrocortisone Acetate [Proctocort] 30 mg RC BID PRN #20 supp.rect 06/10/17 Nystatin/Triamcin 1 applic TP BID PRN #1 cream..g. 06/10/17 [Nystatin-Triamcinolone Cream] Potassium Bicarbonate 25 meq PO DAILY #10 tablet 06/10/17 [K-Effervescent] Cholestyramine [Questran] 4 gm PO DAILY #10 packet 06/14/17 Magnesium Oxide 400 mg PO BID #20 tablet 06/14/17 Nystatin/Triamcin 1 applic TP BID #3 cream..g. 06/14/17 [Nystatin-Triamcinolone Cream] oxyCODONE [Roxicodone] 5 mg PO Q6H PRN #14 tablet 11/07/17 - Allergies Allergies/Adverse Reactions: Allergies Allergy/AdvReac Type Severity Reaction Status Date / Time codeine Allergy Hives Verified 11/07/17 03:11 - Social History Does the pt smoke?: Yes Smoking Status: Current every day smoker Does the pt drink ETOH?: Yes Does the pt have substance abuse?: No - Immunizations Immunizations are current?: Yes - POLST Patient has POLST: No PD ED PE NORMAL - Vitals Vital signs reviewed: Yes - General General: Alert and oriented X 3, No acute distress (NAD at rest, but obvious painful distress with movement involving trunk, as well as with palpation of left chest wall), Well developed/nourished - Cardiac Cardiac: RRR, No murmur - Respiratory Respiratory: No respiratory distress, Clear bilaterally - Abdomen Abdomen: Soft, Non tender PD ED PE EXPANDED - Visual Whole body visual: 1 - tenderness (point-specific tenderness left anterolateral chest wall) Results - Vitals Vitals: Vital Signs - 24 hr 11/07/17 11/07/17 11/07/17 03:38 04:45 05:31 Heart Rate 94 91 92 Respiratory 18 16 16 Rate Blood Pressure 156/92 H 152/83 H 133/73 H O2 Saturation 95 97 96 Oxygen O2 Source Room air - Rads (name of study) chest with left ribs Radiology: Prelim report reviewed, See rad report PD MEDICAL DECISION MAKING - ED course Complexity details: reviewed results, re-evaluated patient, considered differential, d/w patient - Sepsis Event Vital Signs: Vital Signs - 24 hr 11/07/17 11/07/17 11/07/17 03:38 04:45 05:31 Heart Rate 94 91 92 Respiratory 18 16 16 Rate Blood Pressure 156/92 H 152/83 H 133/73 H O2 Saturation 95 97 96 Oxygen O2 Source Room air Departure - Departure Disposition: 01 Home, Self Care Clinical Impression: Bronchitis, Strain of chest wall Condition: Good Instructions: ED Upper Resp Infec No Abx Tx, ED Contusion Chest Wall Follow-Up: Favio Yan DO [Primary Care Provider] - Prescriptions: oxyCODONE [Roxicodone] 5 mg PO Q6H PRN #14 tablet PRN Reason: Pain Discharge Date/Time: 11/07/17 05:37
[2017-11-07] MEDS: oxyCODONE 5 MG TABLET PO STA (04:33)
--- NOTE | 2017-11-07 04:52 | XRAY Report ---
Procedure Date: 11/07/2017 Accession Number: [id number] / [id number] Procedure: XR - Ribs w/PA Chest LT CPT Code: FULL RESULT: EXAM: LEFT RIB RADIOGRAPHY EXAM DATE: 11/07/2017 04:30 AM. CLINICAL HISTORY: Cough, left chest wall pain. COMPARISON: CHEST 2 VIEW PA/LAT 10/11/2016 CHEST W/O 06/14/2016. TECHNIQUE: 1 view of the chest and 2 views of the ribs. FINDINGS: Bones: No displaced rib fracture seen. Possible old left third rib fracture anteriorly. Lungs: Emphysema. No focal opacities. No gross pneumothorax or large effusion. Mediastinum: Heart and mediastinal contours are unremarkable. Other: None. IMPRESSION: 1. No displaced rib fracture or complication from rib fracture seen. 2. Emphysema. [facility]
[2017-11-07 05:31] VITALS: BP 133/73
== END 2017-11-07 05:37 | disposition home or self-care (01) ==
LOC: ED 03:02
DX: J40 Bronchitis, not specified as acute or chronic (principal); S29.011A Strain of muscle and tendon of front wall of thorax, initial encounter; I10 Essential (primary) hypertension; E78.00 Pure hypercholesterolemia, unspecified; K21.9 Gastro-esophageal reflux disease without esophagitis; J44.9 Chronic obstructive pulmonary disease, unspecified; F17.200 Nicotine dependence, unspecified, uncomplicated
CPT/HCPCS: 71101; 99283; A9270

== ENCOUNTER 2018-01-21 13:57 | Outpatient (CLI) | payer BC ==
--- NOTE | 2018-01-21 16:03 | XRAY Report ---
Reason: COPD Procedure Date: 01/21/2018 Accession Number: [id number] / [id number] Procedure: XR - Chest 2 View X-Ray CPT Code: 60978 FULL RESULT: EXAM: CHEST RADIOGRAPHY EXAM DATE: 01/21/2018 02:32 PM. CLINICAL HISTORY: COPD. COMPARISON: Chest 10/11/2016. TECHNIQUE: 2 views. FINDINGS: Spinal stimulator is noted. Lungs/Pleura: No focal opacities evident. Interval opacification of the right posterior sulcus, possible effusion. Underlying process not excluded.. No pneumothorax. Normal volumes. There are large lung volumes and flattening of the diaphragms. Mediastinum: Heart and mediastinal contours are unremarkable. IMPRESSION: Interval opacity of the right posterior sulcus. Likely effusion. Underlying process is not excluded. Correlate clinically for pneumonia although other etiologies are not excluded. COPD. RADIA
== END 2018-01-21 13:58 | disposition home or self-care (01) ==
LOC: DI 13:57
PROVIDERS: ATTEND Internal Medicine
DX: J44.9 Chronic obstructive pulmonary disease, unspecified (principal)
CPT/HCPCS: 71046

== ENCOUNTER 2018-02-26 13:34 | Outpatient (CLI) | payer BC ==
--- NOTE | 2018-02-26 14:29 | XRAY Report ---
Reason: SMOKER,COPD Procedure Date: 02/26/2018 Accession Number: [id number] / [id number] Procedure: XR - Chest 2 View X-Ray CPT Code: 25976 FULL RESULT: EXAM: CHEST RADIOGRAPHY EXAM DATE: 02/26/2018 01:51 PM. CLINICAL HISTORY: SMOKER,COPD. Follow-up pneumonia. Persistent productive cough. COMPARISON: 01/21/2018 TECHNIQUE: 2 views. FINDINGS: Lungs/Pleura: No focal opacities evident. No pleural effusion. No pneumothorax. Hyperexpanded volumes. Mediastinum: Heart and mediastinal contours are unremarkable. Aortic arch calcification. Other: Healing left sixth rib fracture. Mild deformity left ninth lateral rib. Minor degenerative change in the spine with neural stimulator in place. IMPRESSION: No acute findings 2-view chest radiography. RADIA
== END 2018-02-26 13:35 | disposition home or self-care (01) ==
LOC: DI 13:34
PROVIDERS: ATTEND Internal Medicine
DX: J44.9 Chronic obstructive pulmonary disease, unspecified (principal); F17.200 Nicotine dependence, unspecified, uncomplicated
CPT/HCPCS: 71046

== ENCOUNTER 2018-07-18 12:40 | Outpatient (CLI) | payer BC | END 2018-07-18 12:41 | disposition critical access hospital (66) | LOC: EMS 12:40 | PROVIDERS: ATTEND Surgery | DX: R56.9 Unspecified convulsions (principal) | CPT/HCPCS: A0425; A0429 ==

== ENCOUNTER 2018-07-18 12:55 | Emergency (ER) | payer BC ==
[2018-07-18 13:10] VITALS: BP 143/83
[2018-07-18 13:37] LABS: BASOPHILS % (AUTO) 0.6 %; EOSINOPHILS # (AUTO) 0.1 10^3/uL (0.0-0.7); EOSINOPHILS % (AUTO) 1.1 %; HGB - HEMOGLOBIN 14.8 g/dL (12.0-16.0); LYMPHOCYTES % (AUTO) 11.7 %; MEAN CORPUSCULAR HEMOGLOBIN 31.1 pg (27.0-31.0); MEAN CORPUSCULAR HGB CONC 33.9 g/dL (32.0-36.0); MEAN CORPUSCULAR VOLUME 91.8 fL (81.0-99.0); MEAN PLATELET VOLUME 7.3 fL (7.9-10.8); MONOCYTES # (AUTO) 0.6 10^3/uL (0.0-1.0); MONOCYTES % (AUTO) 6.5 %; NEUTROPHILS # (AUTO) 6.9 10^3/uL (1.5-6.6); NEUTROPHILS % (AUTO) 80.1 %; PLT - PLATELET COUNT 301 10^3/uL (130-450); RED BLOOD COUNT 4.75 10^6/uL (4.20-5.40); RED CELL DISTRIBUTION WIDTH 14.3 % (12.0-15.0); WHITE BLOOD COUNT 8.7 x10^3/uL (4.8-10.8)
[2018-07-18] MEDS ORDERED: SODIUM CHLORIDE 0.9% 1,000 ML IV ONE (13:47)
[2018-07-18] MEDS ORDERED: ALBUTEROL NEB 2.5 MG/3 ML INH STA (13:47)
[2018-07-18] MEDS ORDERED: IPRATROPIUM/ALBUTEROL 3 ML NEB INH STA (13:47)
[2018-07-18 13:49] LABS: ALBUMIN 4.4 g/dL (3.2-5.5); ALBUMIN/GLOBULIN RATIO 1.4 (1.0-2.2); ALKALINE PHOSPHATASE 118 IU/L (42-121); ALT ALANINE AMINOTRANSFERASE 31 IU/L (10-60); AST ASPARTATE AMINOTRANSFERASE 51 IU/L (10-42); BILIRUBIN,TOTAL 0.7 mg/dL (0.2-1.0); BUN - BLOOD UREA NITROGEN 6 mg/dL (6-20); CALCIUM 9.2 mg/dL (8.5-10.3); CARBON DIOXIDE - CO2 25 mmol/L (21-32); CHLORIDE 93 mmol/L (101-111); CREATININE 0.5 mg/dL (0.4-1.0); GFR - MDRD 125 (>89); GLUCOSE 170 mg/dL (70-100); LIPASE 37 U/L (22-51); SODIUM 129 mmol/L (135-145); TOTAL PROTEIN 7.5 g/dL (6.7-8.2)
[2018-07-18] MEDS ORDERED: LORazepam 2 MG/ML VIAL IVP STA (13:53)
--- NOTE | 2018-07-18 14:44 | CT Report ---
Reason: sz Procedure Date: 07/18/2018 Accession Number: [id number] / [id number] Procedure: CT - HEAD WO CPT Code: FULL RESULT: EXAM: CT HEAD EXAM DATE: 07/18/2018 02:01 PM. CLINICAL HISTORY: Seizure COMPARISON: None. TECHNIQUE: Multiaxial CT images were obtained from the foramen magnum to the vertex. Reformats: Sagittal and coronal. IV contrast: None. In accordance with CT protocol optimization, one or more of the following dose reduction techniques were utilized for this exam: automated exposure control, adjustment of mA and/or KV based on patient size, or use of iterative reconstructive technique. FINDINGS: There is prominence of the extra-axial space overlying each cerebral convexity particularly superiorly. There is mild generalized cerebral atrophy present. No territorial loss of conrad-white matter differentiation is present. No intracranial mass or hemorrhage is present Focal areas of low attenuation are seen in the cerebral hemisphere white matter bilaterally. In addition there is more confluent low attenuation in the cerebral hemisphere white matter bilaterally. No mass is present in either orbit Mastoid air cells are well aerated No suspicious lytic or blastic region is present within the calvarium. IMPRESSION: 1. Generalized cerebral atrophy is present. 2. No intracranial mass or hemorrhage is present. 3. Suspect remote white matter lacunar infarcts and small vessel ischemic change in the cerebral hemisphere white matter bilaterally. RADIA
--- NOTE | 2018-07-18 15:11 | ED Physician Documentation ---
History of Present Illness - Stated complaint Stated Complaint: SEIZURE - Chief complaint Chief Complaint: Neuro - Additonal information Additional information: 62-year-old female who was brought to the emergency department after an episode of a seizure which was witnessed at home by her daughter. The daughter reports a generalized tonic-clonic activity which lasted less than a minute and was followed by postictal period. The patient apparently has no history of seizure disorder. The patient presently feels back to her normal self just tired. There was no tongue biting or loss of urine. The patient does drink daily but is not withdrawing and consumed alcohol this morning. The patient has no desire to withdrawal from alcohol. The patient denies any new [id number] medications or prescription medications and denies recreational drug use. No other associated symptoms. Review of Systems Constitutional: denies: Fever, Chills Eyes: denies: Discharge Ears: denies: Ear pain Nose: denies: Congestion Throat: denies: Sore throat Cardiac: denies: Chest pain / pressure Respiratory: reports: Wheezing (The patient has chronic COPD and has not used her normal treatment today). denies: Cough GI: denies: Abdominal Pain : denies: Dysuria Skin: denies: Rash Musculoskeletal: denies: Neck pain Neurologic: reports: Seizure. 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 - Present Medications Home Medications: Ambulatory Orders Medication Instructions Recorded Confirmed Amlodipine/Atorvastatin [Caduet 10 1 each PO DAILY 01/14/13 03/01/17 mg-10 mg Tablet] DULoxetine [Cymbalta] 60 mg PO DAILY 01/14/13 03/01/17 Esomeprazole Magnesium [Nexium] 40 mg PO DAILY 01/14/13 03/01/17 Fluticasone/Salmeterol [Advair 1 each IH DAILY 01/14/13 03/01/17 250-50 Diskus] Ipratropium/Albuterol Inhaler 1 puffs INH QID 01/14/13 03/01/17 [Combivent Inhaler] LORazepam INTENSOL [Ativan] 1 mg PO BID PRN 01/14/13 03/01/17 Propranolol [Inderal] 40 mg PO DAILY 01/14/13 03/01/17 Tiotropium [Spiriva] 1 puffs INH DAILY 01/14/13 03/01/17 Fosinopril Sodium 10 mg PO DAILY 10/11/16 03/01/17 Ondansetron Odt [Zofran] 4 mg TL Q6H PRN #10 tablet 10/11/16 03/01/17 busPIRone [Buspar] 1 tab PO DAILY 10/11/16 03/01/17 oxyCODONE [Roxicodone] 5 mg PO Q8H PRN #10 tablet 10/11/16 03/01/17 Cyclobenzaprine [Flexeril] 10 mg PO TID PRN #20 tablet 03/01/17 Lidocaine Patch 5% [Lidoderm Patch] 1 patch TOP DAILY PRN #10 patch 03/01/17 Meloxicam [Mobic] 7.5 mg PO BID PRN #20 tablet 03/01/17 Cephalexin [Keflex] 500 mg PO Q6H #28 capsule 06/10/17 Hydrocortisone Acetate [Proctocort] 30 mg RC BID PRN #20 supp.rect 06/10/17 Nystatin/Triamcin 1 applic TP BID PRN #1 cream..g. 06/10/17 [Nystatin-Triamcinolone Cream] Potassium Bicarbonate 25 meq PO DAILY #10 tablet 06/10/17 [K-Effervescent] Cholestyramine [Questran] 4 gm PO DAILY #10 packet 06/14/17 Magnesium Oxide 400 mg PO BID #20 tablet 06/14/17 Nystatin/Triamcin 1 applic TP BID #3 cream..g. 06/14/17 [Nystatin-Triamcinolone Cream] oxyCODONE [Roxicodone] 5 mg PO Q6H PRN #14 tablet 11/07/17 - Allergies Allergies/Adverse Reactions: Allergies Allergy/AdvReac Type Severity Reaction Status Date / Time codeine Allergy Hives Verified 11/07/17 03:11 - Social History Does the pt smoke?: Yes Smoking Status: Current every day smoker Does the pt drink ETOH?: Yes Does the pt have substance abuse?: No - Immunizations Immunizations are current?: Yes - POLST Patient has POLST: No PD ED PE NORMAL - General General: Other (62-year-old alert appearing female who appears chronically ill and older than her stated age) - HEENT HEENT: Atraumatic, PERRL, EOMI, Ears normal - Neck Neck: Supple, no meningeal sign - Cardiac Cardiac: RRR (Tachycardia), Strong equal pulses - Abdomen Abdomen: Soft, Non tender - Derm Derm: Normal color - Extremities Extremities: No deformity, Normal ROM s pain - Neuro Neuro: Alert and oriented X 3, 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, No motor deficit, No sensory deficit, Normal speech - Psych Psych: Normal affect Results - Vitals Vitals: Vital Signs - 24 hr 07/18/18 07/18/18 13:00 14:12 Temperature 36.1 C L Heart Rate 111 H 107 H Respiratory 16 16 Rate Blood Pressure 143/83 H O2 Saturation 89 L Oxygen O2 Source Room air - Labs Labs: Laboratory Tests 07/18/18 07/18/18 13:30 13:30 WBC 8.7 RBC 4.75 Hgb 14.8 Hct 43.6 MCV 91.8 MCH 31.1 H MCHC 33.9 RDW 14.3 Plt Count 301 MPV 7.3 L Neut # (Auto) 6.9 H Lymph # (Auto) 1.0 L Fleming # (Auto) 0.6 Eos # (Auto) 0.1 Baso # (Auto) 0.0 Absolute Nucleated RBC 0.00 Nucleated RBC % 0.0 Sodium 129 L Potassium 3.9 Chloride 93 L Carbon Dioxide 25 Anion Gap 11.0 BUN 6 Creatinine 0.5 Estimated GFR (MDRD) 125 Glucose 170 H Calcium 9.2 Total Bilirubin 0.7 AST 51 H ALT 31 Alkaline Phosphatase 118 Total Protein 7.5 Albumin 4.4 Globulin 3.1 Albumin/Globulin Ratio 1.4 Lipase 37 Ethyl Alcohol < 5.0 - Rads (name of study) CT head Radiology: Final report received, See rad report (IMPRESSION: 1. Generalized cerebral atrophy is present. 2. No intracranial mass or hemorrhage is present. 3. Suspect remote white matter lacunar infarcts and small vessel ischemic change in the cerebral hemisphere white matter bilaterally. ) PD MEDICAL DECISION MAKING - ED course ED course: The patient's workup does not reveal any significant abnormality, the patient does have a low sodium and this is most likely from her chronic alcoholism and will compared to most recent lab values is higher than normal. Currently I do not think the sodium is the source of her seizure today. The patient currently appears appropriate for discharge with ongoing outpatient workup and evaluation. I recommended that she have an outpatient MRI and EEG to further assess her symptoms today. The patient will also most likely require an outpatient referral to neurology from primary care. The patient's family asked me for a refill of the patient's narcotics, I explained that refills need to come from one prescriber. The family reports that she has been using extra amounts of her narcotics to help manage her chronic pain. I advised returning to the emergency department for any worsening or any concerns Departure - Departure Disposition: 01 Home, Self Care Clinical Impression: Seizure, Moderate COPD (chronic obstructive pulmonary disease), Hyponatremia Alcohol dependence Qualifiers: Substance use status: uncomplicated Qualified Code(s): F10.20 - Alcohol dependence, uncomplicated Condition: Good Follow-Up: Conor Soria MD [Primary Care Provider] - Within 1 week (Please ask your primary care to arrange for an outpatient MRI and EEG to further assess your episode today. You may also require a referral to neurology) Comments: Please return to the emergency department for any worsening or any concerns
[2018-07-18] MEDS ORDERED: HYDROcod/ACETAM 10 MG/325 MG TABLET PO STA (15:51)
== END 2018-07-18 16:12 | disposition home or self-care (01) ==
LOC: EDUNIT# → ED 12:55
DX: G40.909 Epilepsy, unspecified, not intractable, without status epilepticus (principal); J44.9 Chronic obstructive pulmonary disease, unspecified; E87.1 Hypo-osmolality and hyponatremia; F10.20 Alcohol dependence, uncomplicated; I10 Essential (primary) hypertension; E78.00 Pure hypercholesterolemia, unspecified; F17.200 Nicotine dependence, unspecified, uncomplicated
CPT/HCPCS: 36415; 70450; 80053; 80320; 83690; 85025; 93005; 94640; 99283

== ENCOUNTER 2018-07-18 22:34 | Outpatient (CLI) | payer BC | END 2018-07-18 22:35 | disposition critical access hospital (66) | LOC: EMS 22:34 | PROVIDERS: ATTEND Surgery | DX: R56.9 Unspecified convulsions (principal); R06.81 Apnea, not elsewhere classified | CPT/HCPCS: A0425; A0429 ==

== ENCOUNTER 2018-07-18 22:46 | Emergency (ER) | payer BC ==
--- NOTE | 2018-07-18 23:00 | ED Physician Documentation ---
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 No: Recovered between seizure Description of seizure activity: Generalized, Tonic clonic, LOC, Postictal, Apneic Injury during seizure: None Associated symptoms: Unknown History of seizures: No: Known seizure disorder (see below - patient's first seizure was earlier today) Contributing factors: No: Head injury Similar symptoms before: Work up / diagnostics Recently seen: Emergency Dept - Additional information Additional information: Patient was T+R from this ED earlier today after having a seizure, witnessed by family at home. She had not had prior seizures. Her w/u in the ED included CT head (radiologist's impression: 1) generalized cerebral atrophy is present 2) no intracranial mass or hemorrhage is present 3) suspect remote white matter lacunar infarcts and small vessel ischemic change in the cerebral hemisphere white matter bilaterally), as well as blood tests (notable for mild hyponatremia). By the time the patient was in the ED, she was at baseline mental status. Tonight, while lying in bed next to her daughter, daughter noted patient suddenly had whole-body stiffness and was unresponsive, followed by rhythmic and coordinated jerking movement of her limbs. This lasted 2-3 minutes. She then appeared to stop breathing and family was instructed by wire wrapper machine operator to start CPR. After approximately 2 minutes of CPR, the patient was noted to be breathing on her own. Shortly before ambulance arrived, patient had another seizure, lasting approximately 90 seconds. Medics found patient to be post-ictal. She is following some simple commands in ED but not responding verbally. 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 - Present Medications Home Medications: Ambulatory Orders Medication Instructions Recorded Confirmed Amlodipine/Atorvastatin [Caduet 10 1 each PO DAILY 01/14/13 03/01/17 mg-10 mg Tablet] DULoxetine [Cymbalta] 60 mg PO DAILY 01/14/13 03/01/17 Esomeprazole Magnesium [Nexium] 40 mg PO DAILY 01/14/13 03/01/17 Fluticasone/Salmeterol [Advair 1 each IH DAILY 01/14/13 03/01/17 250-50 Diskus] Ipratropium/Albuterol Inhaler 1 puffs INH QID 01/14/13 03/01/17 [Combivent Inhaler] LORazepam INTENSOL [Ativan] 1 mg PO BID PRN 01/14/13 03/01/17 Propranolol [Inderal] 40 mg PO DAILY 01/14/13 03/01/17 Tiotropium [Spiriva] 1 puffs INH DAILY 01/14/13 03/01/17 Fosinopril Sodium 10 mg PO DAILY 10/11/16 03/01/17 Ondansetron Odt [Zofran] 4 mg TL Q6H PRN #10 tablet 10/11/16 03/01/17 busPIRone [Buspar] 1 tab PO DAILY 10/11/16 03/01/17 oxyCODONE [Roxicodone] 5 mg PO Q8H PRN #10 tablet 10/11/16 03/01/17 Cyclobenzaprine [Flexeril] 10 mg PO TID PRN #20 tablet 03/01/17 Lidocaine Patch 5% [Lidoderm Patch] 1 patch TOP DAILY PRN #10 patch 03/01/17 Meloxicam [Mobic] 7.5 mg PO BID PRN #20 tablet 03/01/17 Cephalexin [Keflex] 500 mg PO Q6H #28 capsule 06/10/17 Hydrocortisone Acetate [Proctocort] 30 mg RC BID PRN #20 supp.rect 06/10/17 Nystatin/Triamcin 1 applic TP BID PRN #1 cream..g. 06/10/17 [Nystatin-Triamcinolone Cream] Potassium Bicarbonate 25 meq PO DAILY #10 tablet 06/10/17 [K-Effervescent] Cholestyramine [Questran] 4 gm PO DAILY #10 packet 06/14/17 Magnesium Oxide 400 mg PO BID #20 tablet 06/14/17 Nystatin/Triamcin 1 applic TP BID #3 cream..g. 06/14/17 [Nystatin-Triamcinolone Cream] oxyCODONE [Roxicodone] 5 mg PO Q6H PRN #14 tablet 11/07/17 - Allergies Allergies/Adverse Reactions: Allergies Allergy/AdvReac Type Severity Reaction Status Date / Time codeine Allergy Hives Verified 11/07/17 03:11 - Social History Does the pt smoke?: Yes Smoking Status: Current every day smoker Does the pt drink ETOH?: Yes Does the pt have substance abuse?: No - Immunizations Immunizations are current?: Yes - POLST Patient has POLST: No PD ED PE NORMAL - Vitals Vital signs reviewed: Yes - General General: No acute distress, Well developed/nourished - HEENT HEENT: PERRL, EOMI, Moist mucous membranes, Other (small tongue laceration on right lateral aspect) - Cardiac Cardiac: RRR, No murmur - Respiratory Respiratory: No respiratory distress, Other (diminished breath sounds bilaterally with mild end-expiratory wheezing) - Abdomen Abdomen: Soft, Non distended - Derm Derm: Normal color, Warm and dry - Extremities Extremities: No deformity, No edema - Neuro Eye Opening: To Voice Motor: Obeys Commands Verbal: None GCS Score: 10 Results - Vitals Vitals: Vital Signs - 24 hr 07/18/18 07/18/18 07/19/18 22:46 22:52 00:51 Temperature 36.6 C Heart Rate 79 79 78 Respiratory 18 18 15 Rate Blood Pressure 142/76 H 142/76 H 140/96 H O2 Saturation 86 L 88 L 94 07/19/18 07/19/18 07/19/18 02:00 03:09 04:00 Temperature Heart Rate 83 88 76 Respiratory 12 18 18 Rate Blood Pressure 140/94 H 150/87 H O2 Saturation 94 94 07/19/18 05:11 Temperature Heart Rate 86 Respiratory 17 Rate Blood Pressure 145/91 H O2 Saturation 95 Oxygen O2 Source Nasal cannula Oxygen Flow Rate 2 - EKG (time done) No standard instances Rate: Rate (enter#) (73) Rhythm: NSR [place]: Normal Intervals: Normal [place] QRS: Normal Ischemia: Normal ST segments - Labs Labs: Laboratory Tests 07/18/18 07/18/18 07/18/18 23:05 23:05 23:05 WBC 10.9 H RBC 4.36 Hgb 13.6 Hct 39.9 MCV 91.5 MCH 31.2 H MCHC 34.1 RDW 13.9 Plt Count 262 MPV 6.9 L Neut # (Auto) 8.5 H Lymph # (Auto) 1.2 L Dew[place] # (Auto) 0.9 Eos # (Auto) 0.1 Baso # (Auto) 0.1 Absolute Nucleated RBC 0.00 Nucleated RBC % 0.0 Sodium 123 L Potassium 3.2 L Chloride 87 L Carbon Dioxide 22 Anion Gap 14.0 H BUN 5 L Creatinine 0.5 Estimated GFR (MDRD) 125 Glucose 123 H Calcium 8.3 L Phosphorus 3.6 Magnesium 1.5 L Total Bilirubin 0.8 AST 48 H ALT 28 Alkaline Phosphatase 98 Troponin I Total Protein 7.0 Albumin 4.0 Globulin 3.0 Albumin/Globulin Ratio 1.3 Lipase 41 Urine Color Urine Clarity Urine pH Ur Specific [place] Urine Protein Urine Glucose (UA) Urine Ketones Urine Occult Blood Urine Nitrite Urine Bilirubin Urine Urobilinogen Ur Leukocyte Esterase Urine RBC Urine WBC Ur Squamous Epith Cells Urine Bacteria Urine Yeast Ur Microscopic Review Urine Culture Comments Urine Opiates Screen Ur Oxycodone Screen Urine Methadone Screen Ur Propoxyphene Screen Ur Barbiturates Screen Ur Tricyclics Screen Ur Phencyclidine Scrn Ur Amphetamine Screen U Methamphetamines Scrn U Benzodiazepines Scrn Urine Cocaine Screen U Cannabinoids Screen Ethyl Alcohol 39.2 07/18/18 07/18/18 23:05 23:26 WBC RBC Hgb Hct MCV MCH MCHC RDW Plt Count MPV Neut # (Auto) Lymph # (Auto) Dew[place] # (Auto) Eos # (Auto) Baso # (Auto) Absolute Nucleated RBC Nucleated RBC % Sodium Potassium Chloride Carbon Dioxide Anion Gap BUN Creatinine Estimated GFR (MDRD) Glucose Calcium Phosphorus Magnesium Total Bilirubin AST ALT Alkaline Phosphatase Troponin I < 0.04 Total Protein Albumin Globulin Albumin/Globulin Ratio Lipase Urine Color YELLOW Urine Clarity HAZY Urine pH 6.0 Ur Specific [place] 1.020 Urine Protein TRACE Urine Glucose (UA) NEGATIVE Urine Ketones NEGATIVE Urine Occult Blood SMALL H Urine Nitrite NEGATIVE Urine Bilirubin NEGATIVE Urine Urobilinogen 0.2 (NORMAL) Ur Leukocyte Esterase NEGATIVE Urine RBC 6-10 H Urine WBC 6-10 H Ur Squamous Epith Cells MANY Squamous H Urine Bacteria Few Urine Yeast PRESENT Ur Microscopic Review INDICATED Urine Culture Comments NOT INDICATED Urine Opiates Screen POSITIVE H Ur Oxycodone Screen NEGATIVE Urine Methadone Screen NEGATIVE Ur Propoxyphene Screen NEGATIVE Ur Barbiturates Screen NEGATIVE Ur Tricyclics Screen NEGATIVE Ur Phencyclidine Scrn NEGATIVE Ur Amphetamine Screen NEGATIVE U Methamphetamines Scrn NEGATIVE U Benzodiazepines Scrn POSITIVE H Urine Cocaine Screen NEGATIVE U Cannabinoids Screen NEGATIVE Ethyl Alcohol - Rads (name of study) chest xray Radiology: Prelim report reviewed, See rad report PD MEDICAL DECISION MAKING - ED course Complexity details: reviewed old records, reviewed results, re-evaluated patient, considered differential, d/w patient, d/w family ED course: Early in ED stay, patient became increasingly responsive, including communicating verbally. She only c/o exacerbation of chronic back pain initially, requests pain medication. Later in her stay, she c/o anxiety and requesting ativan (which she takes on regular basis). She also requested albuterol for her COPD. D/W Dr. Daily, who recommends 1.5 grams IV Keppra (and then 1 gram keppra BID); he agrees patient would benefit from further inpatient study. There are no beds available at this time (at [facility] as well as [facility]), and thus other hospitals were contacted. There are no beds available at [facility]. [facility] would not consider the case at this time, saying that they don't have neurology backup at night. Messages left at [facility] called back, do not have beds. We then heard back from [facility] and they do have a bed available, Dr. Maxwell accepts patient after I discussed the case with him. Departure - Departure Disposition: 02 Transfer Acute Care Hosp Clinical Impression: Grand mal seizure, Hyponatremia Condition: Stable Discharge Date/Time: 07/19/18 06:00
[2018-07-18 23:11] LABS: BASOPHILS # (AUTO) 0.1 10^3/uL (0.0-0.1); BASOPHILS % (AUTO) 0.8 %; EOSINOPHILS # (AUTO) 0.1 10^3/uL (0.0-0.7); EOSINOPHILS % (AUTO) 1.3 %; HGB - HEMOGLOBIN 13.6 g/dL (12.0-16.0); LYMPHOCYTES # (AUTO) 1.2 10^3/uL (1.5-3.5); LYMPHOCYTES % (AUTO) 10.9 %; MEAN CORPUSCULAR HEMOGLOBIN 31.2 pg (27.0-31.0); MEAN CORPUSCULAR HGB CONC 34.1 g/dL (32.0-36.0); MEAN CORPUSCULAR VOLUME 91.5 fL (81.0-99.0); MEAN PLATELET VOLUME 6.9 fL (7.9-10.8); MONOCYTES # (AUTO) 0.9 10^3/uL (0.0-1.0); MONOCYTES % (AUTO) 8.7 %; NEUTROPHILS # (AUTO) 8.5 10^3/uL (1.5-6.6); NEUTROPHILS % (AUTO) 78.3 %; PLT - PLATELET COUNT 262 10^3/uL (130-450); RED BLOOD COUNT 4.36 10^6/uL (4.20-5.40); RED CELL DISTRIBUTION WIDTH 13.9 % (12.0-15.0); WHITE BLOOD COUNT 10.9 x10^3/uL (4.8-10.8)
[2018-07-18 23:25] LABS: ALBUMIN/GLOBULIN RATIO 1.3 (1.0-2.2); BILIRUBIN,TOTAL 0.8 mg/dL (0.2-1.0); CALCIUM 8.3 mg/dL (8.5-10.3); CREATININE 0.5 mg/dL (0.4-1.0)
[2018-07-18 23:38] LABS: MAGNESIUM 1.5 mg/dL (1.7-2.8); PHOSPHORUS 3.6 mg/dL (2.5-4.6)
[2018-07-18 23:39] LABS: MUDS CUTOFF CONCENTRATIONS CUTOFF CONC BELOW:
[2018-07-18 23:41] LABS: BILIRUBIN,URINE NEGATIVE (NEGATIVE); GLUCOSE, URINE (UA) NEGATIVE (NEGATIVE); KETONES,URINE (UA) NEGATIVE (NEGATIVE); LEUKOCYTE ESTERASE, URINE NEGATIVE (NEGATIVE); NITRITE,URINE NEGATIVE (NEGATIVE); OCCULT BLOOD,URINE SMALL (NEGATIVE); PROTEIN,URINE TRACE mg/dL (NEGATIVE); UROBILINOGEN,URINE 0.2 (NORMAL) E.U./dL (NORMAL)
[2018-07-18 23:43] LABS: CLARITY,URINE HAZY (CLEAR)
[2018-07-18 23:49] LABS: BACTERIA,URINE Few /HPF (None Seen); SQUAMOUS EPITHELIAL CELL,UR MANY Squamous (<= Few); YEAST,URINE PRESENT
[2018-07-18 23:51] LABS: AMPHETAMINE SCREEN,URINE NEGATIVE (NEGATIVE); BENZODIAZEPINES SCREEN, URINE POSITIVE (NEGATIVE); COCAINE SCREEN URINE NEGATIVE (NEGATIVE); METHADONE SCREEN, URINE NEGATIVE (NEGATIVE); METHAMPHETAMINES SCREEN, URINE NEGATIVE (NEGATIVE); OPIATE SCREEN, URINE POSITIVE (NEGATIVE); OXYCODONE SCREEN, URINE NEGATIVE (NEGATIVE); PROPOXYPHENE SCREEN, URINE NEGATIVE (NEGATIVE); TRICYCLIC ANTIDEPRESSANT,URINE NEGATIVE (NEGATIVE)
--- NOTE | 2018-07-19 00:33 | XRAY Report ---
Reason: seizure Procedure Date: 07/19/2018 Accession Number: [id number] / [id number] Procedure: XR - Chest 2 View X-Ray CPT Code: 56453 FULL RESULT: EXAM: CHEST RADIOGRAPHY EXAM DATE: 07/19/2018 12:11 AM. CLINICAL HISTORY: Seizure. COMPARISON: CHEST 2 VIEW 02/26/2018 1:44 PM. TECHNIQUE: 2 views. FINDINGS: Lungs/Pleura: Large lung volumes. No alveolar consolidation or pleural effusion seen. No pneumothorax. Mediastinum: Lordotic position. Heart size appears normal. Aortic atherosclerosis. Other: Osteopenia. Stimulator electrodes in the spine. Midthoracic vertebral body fracture which appears new compared with the prior exam. Old left rib fracture. IMPRESSION: 1. Large lung volumes consistent with emphysema. 2. Osteopenia with mid thoracic vertebral body fracture of uncertain age, but new compared with 02/26/2018. RADIA
[2018-07-19] MEDS ORDERED: MORPHINE 2 MG/ML CARPUJECT IVP STA ×2 (00:48→02:36)
[2018-07-19] MEDS ORDERED: levETIRAcetam INJ 1,500 MG in SODIUM CHLORIDE 0.9% 100ML 100 ML IV STA (01:13)
[2018-07-19] MEDS ORDERED: LORazepam 2 MG/ML VIAL IVP STA (02:50)
[2018-07-19] MEDS ORDERED: SODIUM CHLORIDE 0.9% 1,000 ML IV STA (02:50)
[2018-07-19] MEDS ORDERED: ALBUTEROL NEB 2.5 MG/3 ML INH STA (02:50)
[2018-07-19 05:12] VITALS: BP 145/91
== END 2018-07-19 06:00 | disposition short-term general hospital (02) ==
LOC: EDUNIT# → ED 22:46
DX: G40.409 Other generalized epilepsy and epileptic syndromes, not intractable, without status epilepticus (principal); E87.1 Hypo-osmolality and hyponatremia; R94.31 Abnormal electrocardiogram [ECG] [EKG]; S01.512A Laceration without foreign body of oral cavity, initial encounter; W22.8XXA Striking against or struck by other objects, initial encounter; J44.9 Chronic obstructive pulmonary disease, unspecified; F10.20 Alcohol dependence, uncomplicated; I10 Essential (primary) hypertension; E78.00 Pure hypercholesterolemia, unspecified; F17.200 Nicotine dependence, unspecified, uncomplicated
CPT/HCPCS: 36415; 51701; 70450; 71046; 80053; 80306; 80320; 81001; 83690; 83735; 84100; 84484; 85025; 93005; 94640; 96361; 96365; 96374; 96375; 96376; 99283; 99285; A9270; J2060; 81003; 87086

== ENCOUNTER 2018-07-19 06:01 | Outpatient (CLI) | payer BC | END 2018-07-19 06:02 | disposition short-term general hospital (02) | LOC: EMS 06:01 | PROVIDERS: ATTEND Surgery | DX: R56.9 Unspecified convulsions (principal) | CPT/HCPCS: A0425; A0428 ==

== ENCOUNTER 2018-07-23 15:13 | Outpatient (CLI) | payer BC | END 2018-07-23 15:14 | disposition critical access hospital (66) | LOC: EMS 15:13 | PROVIDERS: ATTEND Surgery | DX: R06.02 Shortness of breath (principal); R07.9 Chest pain, unspecified; R10.9 Unspecified abdominal pain | CPT/HCPCS: A0425; A0427 ==

== ENCOUNTER 2018-07-23 15:27 | Emergency (ER) | payer BC ==
[2018-07-23 15:52] LABS: BASOPHILS # (AUTO) 0.1 10^3/uL (0.0-0.1); BASOPHILS % (AUTO) 0.9 %; EOSINOPHILS # (AUTO) 0.2 10^3/uL (0.0-0.7); EOSINOPHILS % (AUTO) 3.3 %; HGB - HEMOGLOBIN 13.1 g/dL (12.0-16.0); LYMPHOCYTES % (AUTO) 17.4 %; MEAN CORPUSCULAR HEMOGLOBIN 30.6 pg (27.0-31.0); MEAN CORPUSCULAR VOLUME 92.8 fL (81.0-99.0); MEAN PLATELET VOLUME 7.5 fL (7.9-10.8); MONOCYTES # (AUTO) 0.7 10^3/uL (0.0-1.0); MONOCYTES % (AUTO) 11.9 %; NEUTROPHILS # (AUTO) 3.8 10^3/uL (1.5-6.6); NEUTROPHILS % (AUTO) 66.5 %; PLT - PLATELET COUNT 246 10^3/uL (130-450); RED BLOOD COUNT 4.27 10^6/uL (4.20-5.40); RED CELL DISTRIBUTION WIDTH 13.9 % (12.0-15.0); WHITE BLOOD COUNT 5.7 x10^3/uL (4.8-10.8)
--- NOTE | 2018-07-23 15:55 | ED Physician Documentation ---
PD HPI DYSPNEA - Stated complaint Stated Complaint: CP - Chief complaint Chief Complaint: Cardiac - History obtained from History obtained from: Patient, Family, EMS - History of Present Illness Timing - onset: How many days ago (2) Timing - onset during: Rest Timing - duration: Days (2) Timing - details: Gradual onset Pain level max: 7 Pain level now: 5 Improved by: Inhaler/neb Worsened by: Exertion, Coughing Associated symptoms: Cough (dry), Chest pain / discomfort. No: Fever, Wheezing, Palpitations, Diaphoresis, Bilateral edema, Unilateral edema, Anxiety Recently seen: Admitted (for seizures, started on keppra.) Review of Systems Ten Systems: 10 systems reviewed and negative Constitutional: denies: Fever, Chills Ears: denies: Ear pain Nose: denies: Rhinorrhea / runny nose, Congestion Throat: denies: Sore throat Cardiac: reports: Chest pain / pressure Respiratory: reports: Dyspnea, Cough, Wheezing GI: denies: Nausea, Vomiting, Diarrhea Skin: denies: Rash Musculoskeletal: denies: Neck pain, Back pain Neurologic: denies: Headache PD PAST MEDICAL HISTORY - Past Medical History Cardiovascular: Hypertension, High cholesterol Respiratory: COPD, Pneumonia Neuro: Seizure disorder Endocrine/Autoimmune: None GI: GERD : None HEENT: None Psych: Depression, Anxiety Musculoskeletal: Fibromyalgia, Chronic back pain Derm: None - Past Surgical History Past Surgical History: Yes General: Hiatal hernia repair /[employer]: Hysterectomy - Present Medications Home Medications: Ambulatory Orders Medication Instructions Recorded Confirmed Amlodipine/Atorvastatin [Caduet 10 1 each PO DAILY 01/14/13 03/01/17 mg-10 mg Tablet] DULoxetine [Cymbalta] 60 mg PO DAILY 01/14/13 03/01/17 Esomeprazole Magnesium [Nexium] 40 mg PO DAILY 01/14/13 03/01/17 Fluticasone/Salmeterol [Advair 1 each IH DAILY 01/14/13 03/01/17 250-50 Diskus] LORazepam INTENSOL [Ativan] 1 mg PO TID 01/14/13 03/01/17 Propranolol [Inderal] 40 mg PO DAILY 01/14/13 03/01/17 Tiotropium [Spiriva] 1 puffs INH DAILY 01/14/13 03/01/17 Fosinopril Sodium 10 mg PO DAILY 10/11/16 03/01/17 Ondansetron Odt [Zofran] 4 mg TL Q6H PRN #10 tablet 10/11/16 03/01/17 busPIRone [Buspar] 1 tab PO DAILY 10/11/16 03/01/17 Cyclobenzaprine [Flexeril] 10 mg PO TID PRN #20 tablet 03/01/17 oxyCODONE [Roxicodone] 5 mg PO Q6H PRN #14 tablet 11/07/17 Albuterol Sulf [Ventolin Hfa 1 - 2 puffs INH Q4HR PRN #1 inhaler 07/23/18 Inhaler] Folic Acid 1 mg PO DAILY 07/23/18 07/23/18 Levetiracetam [Keppra] 750 mg ORAL BID 07/23/18 07/23/18 Mirtazapine 15 mg PO DAILY 07/23/18 07/23/18 Morphine Ir [Ms Ir] 15 mg PO Q8H PRN #7 tablet 07/23/18 Oxybutynin [Ditropan] 5 mg PO BID 07/23/18 07/23/18 Thiamine HCl [Vitamin B-1] 100 mg PO 07/23/18 - Allergies Allergies/Adverse Reactions: Allergies Allergy/AdvReac Type Severity Reaction Status Date / Time codeine Allergy Hives Verified 07/23/18 15:32 - Social History Does the pt smoke?: Yes Smoking Status: Current every day smoker Does the pt drink ETOH?: Yes Does the pt have substance abuse?: No - Immunizations Immunizations are current?: Yes - POLST Patient has POLST: No PD ED PE NORMAL - Vitals Vital signs reviewed: Yes - General General: Alert and oriented X 3, No acute distress, Well developed/nourished - HEENT HEENT: PERRL, Moist mucous membranes - Neck Neck: Supple, no meningeal sign - Cardiac Cardiac: RRR, Strong equal pulses - Respiratory Respiratory: No respiratory distress, Other (Diminished breath sounds and wheezing bilaterally) - Abdomen Abdomen: Normal bowel sounds, Soft, Non tender, Non distended - Derm Derm: Warm and dry, No rash - Extremities Extremities: No edema, No calf tenderness / cord - Neuro Neuro: Alert and oriented X 3 - Psych Psych: Normal mood, Normal affect Results - Vitals Vitals: Vital Signs - 24 hr 07/23/18 07/23/18 07/23/18 15:27 15:32 16:21 Temperature 36.8 C Heart Rate 100 94 87 Respiratory 20 16 16 Rate Blood Pressure 143/74 H 143/74 H 146/84 H O2 Saturation 100 100 90 L 07/23/18 07/23/18 07/23/18 16:37 17:09 17:10 Temperature Heart Rate 86 91 88 Respiratory 16 17 22 Rate Blood Pressure 146/103 H O2 Saturation 98 Oxygen O2 Source Room air - EKG (time done) 1534 Rate: Rate (enter#) (92) Rhythm: NSR [place]: Normal Intervals: Normal [place] QRS: Normal Ischemia: Normal ST segments - Labs Labs: Laboratory Tests 07/23/18 07/23/18 07/23/18 15:46 15:46 15:46 WBC 5.7 RBC 4.27 Hgb 13.1 Hct 39.6 MCV 92.8 MCH 30.6 MCHC 33.0 RDW 13.9 Plt Count 246 MPV 7.5 L Neut # (Auto) 3.8 Lymph # (Auto) 1.0 L [place] # (Auto) 0.7 Eos # (Auto) 0.2 Baso # (Auto) 0.1 Absolute Nucleated RBC 0.00 Nucleated RBC % 0.1 Sodium 127 L Potassium 3.7 Chloride 90 L Carbon Dioxide 26 Anion Gap 11.0 BUN 7 Creatinine 0.5 Estimated GFR (MDRD) 125 Glucose 106 H Calcium 8.8 Total Bilirubin 0.9 AST 23 ALT 17 Alkaline Phosphatase 90 Troponin I < 0.04 Total Protein 6.9 Albumin 3.9 Globulin 3.0 Albumin/Globulin Ratio 1.3 Lipase 28 - Rads (name of study) cxr Radiology: Prelim report reviewed, EMP read contemporaneously, See rad report (T7 compression fracture, age unknown. 2. Possible left upper lobe nodule or rib lesion versus artifact. ) PD MEDICAL DECISION MAKING - ED course Complexity details: reviewed results, re-evaluated patient, considered differential (No ST elevation OR, no aortic dissection, no PE, no tension pneumothorax, no aortic aneurysm), d/w patient, d/w family ED course: Patient is a 62-year-old female with 2 days of chest pain. Does not appear related to acute coronary syndrome, pulmonary embolus or aortic dissection. Feels better after nebulizer treatments. Symptoms resolved. Will continue supportive care and follow-up with her doctor. Recommend that she talk to her doctor about a nebulizer for home. She states that she is also out of her pain medication and will give her a small amount of pain meds to last until she can see her doctor in 2 days. Patient counseled regarding signs and symptoms for which I believe and urgent re-evaluation would be necessary. Patient with good understanding of and agreement to plan and is comfortable going home at this time This document was made in part using voice recognition software. While efforts are made to proofread this document, sound alike and grammatical errors may occur. Departure - Departure Disposition: Home, Self Care Clinical Impression: Moderate COPD (chronic obstructive pulmonary disease) Chest pain Qualifiers: Chest pain type: unspecified Qualified Code(s): R07.9 - Chest pain, unspecified Condition: Good Instructions: ED Chest Pain Atypical Unkn Cause Follow-Up: Conor Soria MD [Primary Care Provider] - Within 1 week Prescriptions: Albuterol Sulf [Ventolin Hfa Inhaler] 1 - 2 puffs INH Q4HR PRN #1 inhaler PRN Reason: Shortness Of Air/Wheezing Morphine Ir [Ms Ir] 15 mg PO Q8H PRN #7 tablet PRN Reason: pain Comments: Follow-up with your doctor for further care. Any further pain medications will need to come from your doctor. Do not drink alcohol or drive while on narcotic pain medicine. Note that many narcotic pain relievers also contain tylenol/acetaminophen. Please ensure that your total dose of acetaminophen from all sources does not exceed 3 grams (3000mg) per day. You may constipated on this medication, take a stool softener such as "Colace" twice a day while you are on it. Also recommend a wbco-dyd-bnbdrqu laxative such as senna or MiraLAX any day that you do not have a bowel movement. If you received narcotic pain medication in the emergency department, do not drive or operate machinery for the next 24 hours. your xray shows: T7 compression fracture, age unknown. Possible left upper lobe nodule or rib lesion versus artifact. You should have a repeat chest xray in 2 weeks with your doctor for follow up.
[2018-07-23 16:10] LABS: ALBUMIN 3.9 g/dL (3.2-5.5); ALBUMIN/GLOBULIN RATIO 1.3 (1.0-2.2); BILIRUBIN,TOTAL 0.9 mg/dL (0.2-1.0); CALCIUM 8.8 mg/dL (8.5-10.3); CREATININE 0.5 mg/dL (0.4-1.0); TOTAL PROTEIN 6.9 g/dL (6.7-8.2)
--- NOTE | 2018-07-23 16:26 | XRAY Report ---
Reason: Chest Pain Procedure Date: 07/23/2018 Accession Number: [id number] / [id number] Procedure: XR - Chest 1 View X-Ray CPT Code: 37952 FULL RESULT: EXAM: CHEST RADIOGRAPHY EXAM DATE: 07/23/2018 04:15 PM. CLINICAL HISTORY: Chest Pain. COMPARISON: CHEST 2 VIEW 07/18/2018 11:55 PM. TECHNIQUE: 1 view. FINDINGS: Lungs/Pleura: Hyperexpanded with flattened diaphragm. Possible left upper lobe nodule versus rib lesion or artifact. No definite localized infiltrate, consolidation, effusion, or pneumothorax. Mediastinum: Within exam limitations, the cardiomediastinal contour is normal. Upper lobe vessels not distended. Other: Osteopenia. Degenerative changes. Prominent anterior compression fracture of T7, age unknown. IMPRESSION: 1. T7 compression fracture, age unknown. 2. Possible left upper lobe nodule or rib lesion versus artifact. RADIA
[2018-07-23] MEDS ORDERED: ALBUTEROL NEB 2.5 MG/3 ML INH STA (16:37)
[2018-07-23 17:10] VITALS: BP 146/103
== END 2018-07-23 18:30 | disposition home or self-care (01) ==
LOC: EDUNIT# → ED 15:27
DX: J44.9 Chronic obstructive pulmonary disease, unspecified (principal); R07.9 Chest pain, unspecified; M48.54XA Collapsed vertebra, not elsewhere classified, thoracic region, initial encounter for fracture; F17.200 Nicotine dependence, unspecified, uncomplicated; I10 Essential (primary) hypertension
CPT/HCPCS: 36415; 71045; 80053; 83690; 84484; 85025; 93005; 99284

== ENCOUNTER 2018-08-22 18:25 | Outpatient (CLI) | payer BC | END 2018-08-22 18:26 | disposition critical access hospital (66) | LOC: EMS 18:25 | PROVIDERS: ATTEND Surgery | DX: R56.9 Unspecified convulsions (principal) | CPT/HCPCS: A0425; A0427 ==

== ENCOUNTER 2018-08-22 18:42 | Inpatient (IN) | payer BC ==
[2018-08-22] MEDS ORDERED: IPRATROPIUM/ALBUTEROL 3 ML NEB INH STA ×2 (18:50→22:21)
--- NOTE | 2018-08-22 18:52 | ED Physician Documentation ---
PD HPI SEIZURE - Stated complaint Stated Complaint: LETHARGIC, EPILEPSY - History obtained from History obtained from: Patient, Family, EMS - History of Present Illness Timing - onset: Today (This is a 62-year-old woman who has a recent new di agnosis of szs, may be related to some alcohol withdrawal. She is on Keppra. Has not seen a neurologist yet. She had a productive cough and shortness of breath over the last days. They found her obtunded in the room today acting like she was postictal. The patient is confused but arouses to voice and answer simple questions.) Review of Systems Unable to obtain: Confused PD PAST MEDICAL HISTORY - Past Medical History Cardiovascular: Hypertension, High cholesterol Respiratory: COPD, Pneumonia Neuro: Seizure disorder Endocrine/Autoimmune: None GI: GERD : None HEENT: None Psych: Depression, Anxiety Musculoskeletal: Fibromyalgia, Chronic back pain Derm: None - Past Surgical History Past Surgical History: Yes General: Hiatal hernia repair /[employer]: Hysterectomy - Present Medications Home Medications: Ambulatory Orders Medication Instructions Recorded Confirmed Amlodipine/Atorvastatin [Caduet 10 1 each PO DAILY 01/14/13 03/01/17 mg-10 mg Tablet] DULoxetine [Cymbalta] 60 mg PO DAILY 01/14/13 03/01/17 Esomeprazole Magnesium [Nexium] 40 mg PO DAILY 01/14/13 03/01/17 Fluticasone/Salmeterol [Advair 1 each IH DAILY 01/14/13 03/01/17 250-50 Diskus] LORazepam INTENSOL [Ativan] 1 mg PO TID 01/14/13 03/01/17 Propranolol [Inderal] 40 mg PO DAILY 01/14/13 03/01/17 Tiotropium [Spiriva] 1 puffs INH DAILY 01/14/13 03/01/17 Ondansetron Odt [Zofran] 4 mg TL Q6H PRN #10 tablet 10/11/16 03/01/17 RX: Fosinopril Sodium 10 mg PO DAILY 10/11/16 03/01/17 RX: busPIRone [Buspar] 1 tab PO DAILY 10/11/16 03/01/17 Cyclobenzaprine [Flexeril] 10 mg PO TID PRN #20 tablet 03/01/17 RX: oxyCODONE [Roxicodone] 5 mg PO Q6H PRN #14 tablet 11/07/17 Levetiracetam [Keppra] 750 mg ORAL BID 07/23/18 07/23/18 Oxybutynin [Ditropan] 5 mg PO BID 07/23/18 07/23/18 RX: Albuterol Sulf [Ventolin Hfa 1 - 2 puffs INH Q4HR PRN #1 inhaler 07/23/18 Inhaler] RX: Folic Acid 1 mg PO DAILY 07/23/18 07/23/18 RX: Mirtazapine 15 mg PO DAILY 07/23/18 07/23/18 RX: Morphine Ir [Ms Ir] 15 mg PO Q8H PRN #7 tablet 07/23/18 Thiamine HCl [Vitamin B-1] 100 mg PO 07/23/18 - Allergies Allergies/Adverse Reactions: Allergies Allergy/AdvReac Type Severity Reaction Status Date / Time codeine Allergy Hives Verified 07/23/18 15:32 - Social History Does the pt smoke?: Yes Smoking Status: Current every day smoker Does the pt drink ETOH?: Yes Does the pt have substance abuse?: No - Immunizations Immunizations are current?: Yes - POLST Patient has POLST: No PD ED PE NORMAL - Vitals Vital signs reviewed: Yes (Hypoxic) - General General: Other (She is somnolent but alert and oriented to person place and year) - HEENT HEENT: Other (Disconjugate gaze which is chronic from a lazy eye) - Neck Neck: Supple, no meningeal sign, No bony TTP - Cardiac Cardiac: RRR, No murmur - Respiratory Respiratory: Other (Rhonchorous and wheezy throughout) - Abdomen Abdomen: Soft, Non tender - Derm Derm: Normal color, Warm and dry - Neuro Neuro: Alert and oriented X 3, No motor deficit, No sensory deficit Eye Opening: To Voice Motor: Obeys Commands Verbal: Confused GCS Score: 13 - Psych Psych: Normal mood, Normal affect Results - Vitals Vitals: Vital Signs - 24 hr 08/22/18 08/22/18 08/22/18 18:40 19:16 20:30 Temperature 36.2 C L Heart Rate 86 81 87 Respiratory 16 11 L 12 Rate Blood Pressure 108/90 H 114/77 O2 Saturation 82 L 95 04/04/0108/22/18 08/22/18 21:52 22:21 22:27 Temperature Heart Rate 85 87 Respiratory 14 18 Rate Blood Pressure 124/55 L O2 Saturation 96 85 L 08/22/18 08/22/18 08/22/18 22:50 22:51 23:33 Temperature Heart Rate 96 92 Respiratory 12 Rate Blood Pressure 90/46 L O2 Saturation 80 L 94 95 Oxygen O2 Source Nasal cannula Oxygen Flow Rate 4 - Labs Labs: Laboratory Tests 08/22/18 08/22/18 08/22/18 19:30 19:30 19:45 WBC 7.8 RBC 4.24 Hgb 13.1 Hct 39.1 MCV 92.4 MCH 30.8 MCHC 33.4 RDW 14.5 Plt Count 183 MPV 7.5 L Neut # (Auto) 6.2 Lymph # (Auto) 1.0 L [place] # (Auto) 0.6 Eos # (Auto) 0.1 Baso # (Auto) 0.0 Absolute Nucleated RBC 0.00 Nucleated RBC % 0.0 VBG pH VBG pCO2 VBG pO2 VBG HCO3 VBG Total CO2 VBG O2 Saturation VBG Base Excess Sodium 124 L Potassium 4.6 Chloride 88 L Carbon Dioxide 25 Anion Gap 11.0 BUN 13 Creatinine 1.1 H Estimated GFR (MDRD) 50 L Glucose 107 H Calcium 8.9 Total Bilirubin 0.4 AST 28 ALT 17 Alkaline Phosphatase 114 Total Protein 6.8 Albumin 4.0 Globulin 2.8 Albumin/Globulin Ratio 1.4 Lipase 26 Urine Color YELLOW Urine Clarity SL. CLOUDY Urine pH 5.5 Ur Specific [place] >=1.030 H Urine Protein 30 H Urine Glucose (UA) NEGATIVE Urine Ketones TRACE Urine Occult Blood NEGATIVE Urine Nitrite NEGATIVE Urine Bilirubin NEGATIVE Urine Urobilinogen 0.2 (NORMAL) Ur Leukocyte Esterase TRACE H Urine RBC None Seen Urine WBC 4-5 Ur Squamous Epith Cells FEW Squamous Urine Bacteria Many H Urine Casts 0-2 Hyaline Casts Ur Microscopic Review INDICATED Urine Culture Comments INDICATED Salicylates < 6.0 Urine Opiates Screen POSITIVE H Ur Oxycodone Screen POSITIVE H Urine Methadone Screen NEGATIVE Ur Propoxyphene Screen NEGATIVE Acetaminophen < 10 L Ur Barbiturates Screen NEGATIVE Ur Tricyclics Screen POSITIVE H Ur Phencyclidine Scrn NEGATIVE Ur Amphetamine Screen NEGATIVE U Methamphetamines Scrn NEGATIVE U Benzodiazepines Scrn POSITIVE H Urine Cocaine Screen NEGATIVE U Cannabinoids Screen NEGATIVE Ethyl Alcohol < 5.0 08/22/18 22:30 WBC RBC Hgb Hct MCV MCH MCHC RDW Plt Count MPV Neut # (Auto) Lymph # (Auto) [place] # (Auto) Eos # (Auto) Baso # (Auto) Absolute Nucleated RBC Nucleated RBC % VBG pH 7.276 L VBG pCO2 57.5 H VBG pO2 37.2 VBG HCO3 26.2 VBG Total CO2 27.9 VBG O2 Saturation 66.9 VBG Base Excess -1.7 Sodium Potassium Chloride Carbon Dioxide Anion Gap BUN Creatinine Estimated GFR (MDRD) Glucose Calcium Total Bilirubin AST ALT Alkaline Phosphatase Total Protein Albumin Globulin Albumin/Globulin Ratio Lipase Urine Color Urine Clarity Urine pH Ur Specific [place] Urine Protein Urine Glucose (UA) Urine Ketones Urine Occult Blood Urine Nitrite Urine Bilirubin Urine Urobilinogen Ur Leukocyte Esterase Urine RBC Urine WBC Ur Squamous Epith Cells Urine Bacteria Urine Casts Ur Microscopic Review Urine Culture Comments Salicylates Urine Opiates Screen Ur Oxycodone Screen Urine Methadone Screen Ur Propoxyphene Screen Acetaminophen Ur Barbiturates Screen Ur Tricyclics Screen Ur Phencyclidine Scrn Ur Amphetamine Screen U Methamphetamines Scrn U Benzodiazepines Scrn Urine Cocaine Screen U Cannabinoids Screen Ethyl Alcohol - Rads (name of study) CT Chest Radiology: EMP read contemporaneously (Small hiatal hernia. Left upper lobe focal bullous disease with nodular thickening seen at the wall, close follow-up and/or PET CT is recommended. New severe chronic appearing T7 compression fracture) CT Head Radiology: EMP read contemporaneously (NAD) PD MEDICAL DECISION MAKING - ED course ED course: This is a 62-year-old woman who presents by ambulance with altered mental status. The family presumed seizure since she has had a few seizures recently, but there was no seizure activity seen, but this was similar to her previous postictal episodes. She was also hypoxic with rhonchorous sounding lungs. She had a slow return to normal mental status but eventually did. This did not resolve her hypoxemia. So she was treated with a DuoNeb, and she remained hypoxic down to the low 80s on room air results of the CT of the chest were discussed with the patient and her family. They know she needs follow-up for potential lung cancer. She does show evidence of modest CO2 retention with acidosis on a venous gas. She was persistently hypoxic and will need to be admitted for further evaluation and treatment and I spoke with Dr. Leonard for admission at 11:09 PM. Departure - Departure Disposition: 66 [facility] DC/Xfer Clinical Impression: Pulmonary mass, COPD (chronic obstructive pulmonary disease), Altered mental status, Polypharmacy, Hypoxemia Condition: Serious
[2018-08-22 19:49] LABS: MUDS CUTOFF CONCENTRATIONS CUTOFF CONC BELOW:
[2018-08-22 19:53] LABS: GLUCOSE, URINE (UA) NEGATIVE (NEGATIVE); KETONES,URINE (UA) TRACE mg/dL (NEGATIVE); LEUKOCYTE ESTERASE, URINE TRACE (NEGATIVE); NITRITE,URINE NEGATIVE (NEGATIVE); OCCULT BLOOD,URINE NEGATIVE (NEGATIVE); PH,URINE 5.5 PH (5.0-7.5); PROTEIN,URINE 30 mg/dL (NEGATIVE); UROBILINOGEN,URINE 0.2 (NORMAL) E.U./dL (NORMAL)
[2018-08-22 19:57] LABS: CLARITY,URINE SL. CLOUDY (CLEAR)
[2018-08-22 20:00] LABS: BASOPHILS % (AUTO) 0.4 %; EOSINOPHILS # (AUTO) 0.1 10^3/uL (0.0-0.7); EOSINOPHILS % (AUTO) 0.9 %; HGB - HEMOGLOBIN 13.1 g/dL (12.0-16.0); LYMPHOCYTES % (AUTO) 12.2 %; MEAN CORPUSCULAR HEMOGLOBIN 30.8 pg (27.0-31.0); MEAN CORPUSCULAR HGB CONC 33.4 g/dL (32.0-36.0); MEAN CORPUSCULAR VOLUME 92.4 fL (81.0-99.0); MEAN PLATELET VOLUME 7.5 fL (7.9-10.8); MONOCYTES # (AUTO) 0.6 10^3/uL (0.0-1.0); MONOCYTES % (AUTO) 7.2 %; NEUTROPHILS # (AUTO) 6.2 10^3/uL (1.5-6.6); NEUTROPHILS % (AUTO) 79.3 %; PLT - PLATELET COUNT 183 10^3/uL (130-450); RED BLOOD COUNT 4.24 10^6/uL (4.20-5.40); RED CELL DISTRIBUTION WIDTH 14.5 % (12.0-15.0); WHITE BLOOD COUNT 7.8 x10^3/uL (4.8-10.8)
[2018-08-22 20:00] LABS: BILIRUBIN,URINE NEGATIVE (NEGATIVE); ICTOTEST,URINE NEGATIVE
--- NOTE | 2018-08-22 20:08 | XRAY Report ---
Reason: dyspnea cough Procedure Date: 08/22/2018 Accession Number: [id number] / [id number] Procedure: XR - Chest 1 View X-Ray CPT Code: 69373 FULL RESULT: EXAM: CHEST RADIOGRAPHY EXAM DATE: 08/22/2018 07:41 PM. CLINICAL HISTORY: Dyspnea cough. COMPARISON: CHEST 1 VIEW 07/23/2018 4:02 PM CHEST 2 VIEW 07/18/2018 11:55 PM. TECHNIQUE: 1 view. FINDINGS: Cardiac leads overlie the chest. Heart size is normal. Calcified plaques in the thoracic aorta. Redemonstrated hyperexpanded and hyperlucent lungs likely related to chronic pulmonary disease. No consolidation, pleural effusion, or pneumothorax. Redemonstrated 18 mm nodular opacity projecting over the posterior/lateral left sixth rib, which may represent a bony lesion related to trauma versus a pulmonary nodule. This is unchanged from the prior exam. Possible stimulator device leads projecting over the lower thoracic spine. IMPRESSION: No acute cardiopulmonary findings. RADIA
[2018-08-22 20:11] LABS: ACETAMINOPHEN < 10 ug/mL (10-30); ALBUMIN/GLOBULIN RATIO 1.4 (1.0-2.2); ALKALINE PHOSPHATASE 114 IU/L (42-121); ALT ALANINE AMINOTRANSFERASE 17 IU/L (10-60); AST ASPARTATE AMINOTRANSFERASE 28 IU/L (10-42); BILIRUBIN,TOTAL 0.4 mg/dL (0.2-1.0); BUN - BLOOD UREA NITROGEN 13 mg/dL (6-20); CALCIUM 8.9 mg/dL (8.5-10.3); CARBON DIOXIDE - CO2 25 mmol/L (21-32); CHLORIDE 88 mmol/L (101-111); CREATININE 1.1 mg/dL (0.4-1.0); GFR - MDRD 50 (>89); GLUCOSE 107 mg/dL (70-100); LIPASE 26 U/L (22-51); SALICYLATE < 6.0 mg/dL; SODIUM 124 mmol/L (135-145); TOTAL PROTEIN 6.8 g/dL (6.7-8.2)
[2018-08-22 20:12] LABS: RBC,URINE None Seen /HPF (0-5)
[2018-08-22 20:13] LABS: BACTERIA,URINE Many /HPF (None Seen); CASTS, URINE 0-2 Hyaline Casts /LPF; SQUAMOUS EPITHELIAL CELL,UR FEW Squamous (<= Few)
[2018-08-22 20:16] LABS: AMPHETAMINE SCREEN,URINE NEGATIVE (NEGATIVE); BENZODIAZEPINES SCREEN, URINE POSITIVE (NEGATIVE); COCAINE SCREEN URINE NEGATIVE (NEGATIVE); METHADONE SCREEN, URINE NEGATIVE (NEGATIVE); METHAMPHETAMINES SCREEN, URINE NEGATIVE (NEGATIVE); OPIATE SCREEN, URINE POSITIVE (NEGATIVE); OXYCODONE SCREEN, URINE POSITIVE (NEGATIVE); PROPOXYPHENE SCREEN, URINE NEGATIVE (NEGATIVE); TRICYCLIC ANTIDEPRESSANT,URINE POSITIVE (NEGATIVE)
[2018-08-22] MEDS ORDERED: IOVERSOL 320 100 ML VIAL IVP ONE ×2 (20:40→21:14)
--- NOTE | 2018-08-22 21:30 | CT Report ---
Reason: altererd Procedure Date: 08/22/2018 Accession Number: [id number] / [id number] Procedure: CT - HEAD WO CPT Code: FULL RESULT: EXAM: CT HEAD EXAM DATE: 08/22/2018 08:50 PM. CLINICAL HISTORY: Altererd. COMPARISON: HEAD W/O 07/18/2018 2:01 PM. TECHNIQUE: Multiaxial CT images were obtained from the foramen magnum to the vertex. Reformats: Sagittal and coronal. IV contrast: None. In accordance with CT protocol optimization, one or more of the following dose reduction techniques were utilized for this exam: automated exposure control, adjustment of mA and/or KV based on patient size, or use of iterative reconstructive technique. FINDINGS: Parenchyma: No intraparenchymal hemorrhage. No evidence of mass, midline shift or CT findings of acute territorial infarction. Ratliff-white differentiation is distinct. Mild global volume loss as before. Deep white matter low attenuation likely reflects chronic micro-angiopathic ischemic change. Extraaxial Spaces: No subdural or epidural collections identified. Ventricles: No hydrocephalus Sinuses: Imaged paranasal sinuses, orbits, and mastoids show no significant abnormality. Bones: No evidence of acute fracture or calvarial defect. Other: None. IMPRESSION: No acute intracranial abnormalities. RADIA
--- NOTE | 2018-08-22 22:09 | CT Report ---
Reason: hypoxemia, pulm nodule Procedure Date: 08/22/2018 Accession Number: [id number] / [id number] Procedure: CT - ANGIO CHEST W/WO CPT Code: FULL RESULT: EXAM: CT ANGIOGRAM CHEST. EXAM DATE: 08/22/2018 09:16 PM. CLINICAL HISTORY: Hypoxemia, pulmonary nodule. COMPARISON: CHEST W/O 06/14/2016 2:03 PM. CHEST 1 VIEW 08/22/2018 7:27 PM. CHEST 1 VIEW 07/23/2018 4:02 PM. CHEST 2 VIEW 07/18/2018 11:55 PM. CHEST 2 VIEW 02/26/2018 1:44 PM. TECHNIQUE: Routine helical imaging was performed through the chest in the pulmonary arterial phase. IV Contrast: 80 mL [id number]. Reconstructions: Coronal 3-D MIP reconstructions.Sagittal and coronal. In accordance with CT protocol optimization, one or more of the following dose reduction techniques were utilized for this exam: automated exposure control, adjustment of mA and/or KV based on patient size, or use of iterative reconstructive technique. FINDINGS: Upper abdomen: No acute findings. Mediastinum: Small hiatal hernia. Normal heart size. Mildly prominent right hilar lymph node measuring 6 mm. No mediastinal or hilar lymphadenopathy. No thoracic aortic aneurysm. No evidence for pulmonary emboli. Lungs: Mild consolidation seen in the right middle lobe probably chronic, increase. Minimal lingular scarring. Moderate emphysema. Mild motion artifact limited. Mild bibasilar multifocal linear opacities in the lower lobes most suggestive for atelectasis, new compared to the prior. Mild bibasilar lower lobe pneumonia not completely excluded. No pleural effusion or pneumothorax. Left upper lobe bullous disease measuring 5.5 x 4.1 cm, increased compared to the prior exam and there are new areas of nodular thickening at the quintana, one area seen at the inferior medial aspect measuring 8 x 5 mm and another area seen laterally measuring 8 x 5 mm. Left posterior lateral 6th chronic nonunion rib fracture new compared to the prior CT. No acute bone findings are seen. Left flank battery pack connected to the neurostimulator leads going into the lumbar spinal canal. Severe T7 compression fracture appears more chronic, new compared to the prior CT. Mild posterior protrusion of bone effacing the anterior thecal sac without central stenosis. IMPRESSION: 1. Small hiatal hernia. 2. No evidence for pulmonary emboli. 3. Moderate emphysema. Left upper lobe focal bullous disease with new nodular thickening seen at the wall, could represent pulmonary nodules as seen with malignancy and follow-up is recommended. A PET CT scan could further evaluate. 4. New severe chronic appearing T7 compression fracture. 5. No acute bone findings are seen. Keep the prior MRI thoracic and lumbar spine reports. 6. See above. RADIA
[2018-08-22] MEDS ORDERED: IBUPROFEN 600 MG TABLET PO STA (22:22)
[2018-08-22] MEDS ORDERED: ACETAMINOPHEN 325 MG TABLET PO STA (22:22)
[2018-08-22 22:36] LABS: VBG PH 7.276 (7.31-7.41)
[2018-08-22 22:37] LABS: VBG BASE EXCESS -1.7 mmol/L (-2 - +2); VBG PCO2 57.5 mmHg (41-51); VBG PO2 37.2 mmHg (25-47); VBG TOTAL CO2 27.9 mmol/L (24-29)
[2018-08-22] MEDS ORDERED: methylPREDNISolone SUCCINATE 125 MG/2 ML VIAL IVP STA (23:04)
[2018-08-22] MEDS ORDERED: cefTRIAXone 1 GM in SODIUM CHLORIDE 0.9% MINIBAG 100 ML IV STA (23:04)
[2018-08-22] MEDS ORDERED: oxyCODONE 5 MG TABLET PO STA (23:15)
[2018-08-22] MEDS ORDERED: cefTRIAXone 1 GM VIAL ONE (23:29)
[2018-08-23] MEDS ORDERED: SODIUM CHLORIDE FLUSH 0.9% 10 ML SYRINGE IVP PRN (00:26)
[2018-08-23] MEDS ORDERED: IPRATROPIUM/ALBUTEROL 3 ML NEB INH PRN (00:30)
[2018-08-23] MEDS: SODIUM CHLORIDE FLUSH 0.9% 10 ML SYRINGE IVP SCH ×3 (01:00→17:35)
--- NOTE | 2018-08-23 04:25 | HISTORY & PHYSICAL EXAMINATION ---
Chief Complaint - Chief Complaint Chief Complaint: altered mental status History of Present Illness - Admitted From Admitted From:: [facility] ED - History Obtained From Records Reviewed: yes History obtained from: ED physicin and note Exam Limitations: patient appears confused - History of Present Illness HPI Comment/Other: Patient on 08/22/18 at 2345pm The account below was obtained from the HPI of the ED note because the patient is still somewhat confused. and is not a very reliable historian currently. In addition family was not at bedside and cannot be reach at this time. (This is a 62-year-old woman who has a recent new diagnosis of szs, may be related to some alcohol withdrawal. She is on Keppra. Has not seen a neurologist yet. She had a productive cough and shortness of breath over the last days. They found her obtunded in the room today acting like she was postictal. The patient is confused but arouses to voice and answer simple questions.) During my exam, the patient report that when her family found her obtunded, she could hear and understand what they were saying but was unable to respond. She could not remember the name of the hospital she was currently in. She also thought she was in [place]. 24 hours prior, it appears she was at her baseline, at which she is independent of activities of daily living. She denied chest pain, MAURICIO, abd pain, n/v/d, fever or chills. She was found to have an O2Sat of 82%. As a result she is being admitted for further management. History - Past Medical History Cardiovascular: reports: Hypertension, High cholesterol Respiratory: reports: COPD, Pneumonia Neuro: reports: Seizure disorder Endocrine/Autoimmune: reports: None GI: reports: GERD : reports: None HEENT: reports: None Psych: reports: Depression, Anxiety Musculoskeletal: reports: Fibromyalgia, Chronic back pain Derm: reports: None MRSA Hx?: No Other Past Medical History: cprs. fatique syndrome - Past Surgical History General: reports: Hiatal hernia repair /[employer]: reports: Hysterectomy - Family & Social History Family History Comment/Other: FAMILY HISTORY IS POSITIVE FOR DIABETES, CORONARY ARTERY DISEASE AND OVARIAN CANCER BUT DOES NOT SPECIFY WHICH RELATIVES Living arrangement: At home Living Situation: With family - Substance History Use: Uses substance without health or social issues: Tobacco (ABOUT 1PPD SINCE AGE 20), Alcohol (Unspecified amount) - POLST Patient has POLST: No POLST Status: Full Code Meds/Allgy - Home Medications Home Medications: Ambulatory Orders Medication Instructions Recorded Confirmed Amlodipine/Atorvastatin [Caduet 10 1 each PO DAILY 01/14/13 03/01/17 mg-10 mg Tablet] DULoxetine [Cymbalta] 60 mg PO DAILY 01/14/13 03/01/17 Esomeprazole Magnesium [Nexium] 40 mg PO DAILY 01/14/13 03/01/17 Fluticasone/Salmeterol [Advair 1 each IH DAILY 01/14/13 03/01/17 250-50 Diskus] LORazepam INTENSOL [Ativan] 1 mg PO TID 01/14/13 03/01/17 Propranolol [Inderal] 40 mg PO DAILY 01/14/13 03/01/17 Tiotropium [Spiriva] 1 puffs INH DAILY 01/14/13 03/01/17 Fosinopril Sodium 10 mg PO DAILY 10/11/16 03/01/17 Ondansetron Odt [Zofran] 4 mg TL Q6H PRN #10 tablet 10/11/16 03/01/17 busPIRone [Buspar] 1 tab PO DAILY 10/11/16 03/01/17 Cyclobenzaprine [Flexeril] 10 mg PO TID PRN #20 tablet 03/01/17 oxyCODONE [Roxicodone] 5 mg PO Q6H PRN #14 tablet 11/07/17 Albuterol Sulf [Ventolin Hfa 1 - 2 puffs INH Q4HR PRN #1 inhaler 07/23/18 Inhaler] Folic Acid 1 mg PO DAILY 07/23/18 07/23/18 Levetiracetam [Keppra] 750 mg ORAL BID 07/23/18 07/23/18 Mirtazapine 15 mg PO DAILY 07/23/18 07/23/18 Morphine Ir [Ms Ir] 15 mg PO Q8H PRN #7 tablet 07/23/18 Oxybutynin [Ditropan] 5 mg PO BID 07/23/18 07/23/18 Thiamine HCl [Vitamin B-1] 100 mg PO 07/23/18 - Allergies Allergies/Adverse Reactions: Allergies Allergy/AdvReac Type Severity Reaction Status Date / Time codeine Allergy Hives Verified 07/23/18 15:32 Review of Systems - Constitutional Constitutional: denies: Fever, Chills, Diaphoresis - Eyes Eyes: denies: Blurred vision, Vision loss, Dipolpia - Ears, Nose & Throat Ears, Nose & Throat: denies: Hearing loss, Nosebleeds, Sore throat, Hoarseness - Cardiovascular Cariovascular: denies: Palpitations, Chest pain, Edema, Lightheadedness, Syncope - Respiratory Respiratory: denies: Cough, Sputum production, Wheezing - Gastrointestinal Gastrointestinal: denies: Abdominal pain, Nausea, Vomiting - Genitourinary Genitourinary: denies: Dysuria, Frequency, Urgency, Hematuria - Integumentary Integumentary: denies: Rash, Pruritis, Lesions - Neurological Neurological: reports: Seizures. denies: General weakness, Focal weakness, Dizziness - Psychiatric Psychiatric: reports: Depression, Anxiety - Endocrine Endocrine: denies: Polyuria, Polydypsia - Hematologic/Lymphatic Hematologic/Lymphatic: denies: Anemia - All Other Systems All Other Systems: reports: Other Prior Level of Functionality: Lives at home with family. Is independent of activities of daily living Exam - Vital Signs Vital Signs: Vital Signs x48h Temp Pulse Pulse Resp BP BP Pulse Ox 08/23/18 01:42 36.6 C 85 16 134/75 H 96 08/23/18 00:36 83 16 97 08/23/18 00:03 88 17 97 08/22/18 23:50 92 12 107/66 08/22/18 23:33 92 12 90/46 L 95 08/22/18 22:51 96 94 08/22/18 22:50 80 L 08/22/18 22:27 87 18 08/22/18 22:21 85 L 08/22/18 21:52 85 14 124/55 L 96 08/22/18 20:30 87 12 114/77 95 - Physical Exam General Appearance: positive: No acute distress, Alert Eyes Bilateral: positive: Normal inspection, PERRL, EOMI, No lid inflammation ENT: positive: ENT inspection nml, Pharynx nml, No signs of dehydration Neck: positive: Nml inspection, No JVD, Trachea midline Respiratory: positive: Chest non-tender, No respiratory distress. negative: Wheezes, Rales, Rhonchi Cardiovascular: positive: Regular rate & rhythm, No murmur Abdomen: positive: Non-tender, Nml bowel sounds, No distention. negative: Guarding, Rebound Skin: positive: Color nml, No rash, Warm, Dry, Cyanosis Extremities: positive: Non-tender, Nml appearance, No pedal edema Neurologic/Psychiatric: positive: Disoriented to place. negative: Facial droop, Slurred/abnml speech Conclusion/Plan - Problem List (1) Acute respiratory failure with hypoxia Conclusion/Plan: ?2/2 COPD. vs polypharmacy Pt is and active smoker Scopolamine patch ordered Duoneb ordered prn Solumedrol scheduled Will assess for home oxygen (2) COPD (chronic obstructive pulmonary disease) Conclusion/Plan: Duoneb and solumedrol ordered On Advair and Spiriva Qualifiers: COPD type: unspecified COPD Qualified Code(s): J44.9 - Chronic obstructive pulmonary disease, unspecified (3) Pulmonary nodules Conclusion/Plan: Etiology undetermined Follow up recommended/Consider repeat CT thorax in 1 month Or PET scan as out patient (4) Compression fracture of T7 vertebra Conclusion/Plan: Pain management. In light of poly-pharmacy, will attempt to minimize opiate use Patient may need a brace (5) Seizure Conclusion/Plan: On Keppra and lorazepam. Will continue once verified (6) Anxiety Conclusion/Plan: On buspirone and ativan (7) Depression Conclusion/Plan: On cymbalta and remeron (8) Hyponatremia Conclusion/Plan: It would appear patient chronically runs low Over the past 2yrs highest Na level has been 129. ?2/2 alcohol abuse Will monitor for now with IV hydration (9) Hypertension Conclusion/Plan: On amlodipine. Resume once verified (10) Hyperlipidemia Conclusion/Plan: On atorvastatin Resume when verified (11) Polypharmacy Conclusion/Plan: Patient on several opiate meds Will hold all opiates and muscle relaxant for now (12) GERD (gastroesophageal reflux disease) Conclusion/Plan: Protonix 40mg po daily ordered - Lab Results Fish Bones: 08/23/18 06:15 08/23/18 06:15 Core Measures - Anticipated LOS I expect patient to be DC'd or transferred within 96 hours.: Yes - DVT/VTE - Prophylaxis VTE/DVT Device ordered at admit?: Yes VTE/DVT Prophylaxis med ordered at admit?: Yes
[2018-08-23] MEDS: methylPREDNISolone SUCCINATE 40 MG/ML VIAL IVP SCH ×3 (05:49→22:09)
[2018-08-23] MEDS: SODIUM CHLORIDE 0.9% 1,000 ML IV SCH ×3 (05:49→22:50)
[2018-08-23 06:45] LABS: BASOPHILS % (AUTO) 0.2 %; HGB - HEMOGLOBIN 12.9 g/dL (12.0-16.0); LYMPHOCYTES # (AUTO) 0.3 10^3/uL (1.5-3.5); LYMPHOCYTES % (AUTO) 7.6 %; MEAN CORPUSCULAR HEMOGLOBIN 31.1 pg (27.0-31.0); MEAN CORPUSCULAR VOLUME 91.7 fL (81.0-99.0); MEAN PLATELET VOLUME 7.6 fL (7.9-10.8); NEUTROPHILS % (AUTO) 91.2 %; PLT - PLATELET COUNT 190 10^3/uL (130-450); RED BLOOD COUNT 4.15 10^6/uL (4.20-5.40); RED CELL DISTRIBUTION WIDTH 14.1 % (12.0-15.0); WHITE BLOOD COUNT 4.4 x10^3/uL (4.8-10.8)
[2018-08-23 06:56] LABS: CALCIUM 8.9 mg/dL (8.5-10.3); CREATININE 0.7 mg/dL (0.4-1.0)
[2018-08-23] MEDS: PANTOPRAZOLE 40 MG TABLET PO SCH (06:59)
[2018-08-23 08:03] LABS: MAGNESIUM 1.8 mg/dL (1.7-2.8); PHOSPHORUS 4.8 mg/dL (2.5-4.6)
[2018-08-23 09:38] LABS: ABG BASE EXCESS -1.3 mmol/L (-2.0-3.0); ABG HCO3 26.9 mmol/L (22.0-26.0); ABG OXYGEN SATURATION 94 % (94-98); ABG PH 7.27 (7.35-7.45); ABG PO2 78 mmHg (80-100); ABG TCO2 28.8 MMOL/L (21.0-29.0)
[2018-08-23 09:39] LABS: ALLEN TEST POSITIVE
[2018-08-23 09:42] LABS: ABG PCO2 61 mmHg (34-45)
[2018-08-23] MEDS: POLYETHYLENE GLYCOL 3350 17 GM PACKET PO SCH (09:45)
[2018-08-23] MEDS: ENOXAPARIN 40 MG/0.4 ML SYRINGE SUBQ SCH (09:45)
[2018-08-23] MEDS: NICOTINE 14 MG PATCH TOP SCH (09:46)
[2018-08-23] MEDS ORDERED: LEVALBUTEROL 1.25 MG/3 ML NEB INH PRN (16:38)
[2018-08-23 16:43] LABS: ABG PH 7.45 (7.35-7.45)
[2018-08-23 16:44] LABS: ABG HCO3 28.5 mmol/L (22.0-26.0); ABG OXYGEN SATURATION 95 % (94-98); ABG PCO2 42 mmHg (34-45); ABG PO2 75 mmHg (80-100); ABG TCO2 29.8 MMOL/L (21.0-29.0); ALLEN TEST POSITIVE
[2018-08-23] MEDS ORDERED: LEVALBUTEROL 1.25 MG/3 ML NEB INH SCH (17:00)
--- NOTE | 2018-08-23 17:03 | PROVIDER PROGRESS NOTE ---
Subjective - Prog Note Date Prog Note Date: 08/23/18 Prog Note Time: 16:58 - Subjective Pt reports feeling: No change Subjective: This morning, the patient was not responding with any meaningful responses, but since her ABGs have improved, she is much more interactive. She complains of ongoing back pain and states that she wishes to have her home oxycodone resumed. She denies chest pain, nausea, vomiting, a new rash or increased sputum or cough. Current Medications - Current Medications Current Medications: Active Medications: Acetaminophen (Tylenol) 650 mg PO Q4HR PRN Rocephin 1 Gm IV Q 24 hours LIANA Enoxaparin Sodium (Lovenox) 40 mg SUBQ DAILY LIANA Folic Acid 1 mg PO DAILY LIANA Sodium Chloride (Normal Saline 0.9%) 1,000 mls @ 125 mls/hr IV Q8H LIANA Levalbuterol HCl (Xopenex) 1.25 mg INH Q4H PRN Levalbuterol HCl (Xopenex) 1.25 mg INH Q6H LIANA Levetiracetam (Keppra) 750 mg PO BID LIANA Lorazepam (Ativan) 3 mg PO BID PRN Methylprednisolone (Solu-Medrol (40mg Vial)) 40 mg IVP Q8HR LIANA Nicotine (Nicoderm) 1 patch TOP DAILY LIANA Pantoprazole Sodium (Protonix) 40 mg PO QDAC LIANA Polyethylene Glycol (Miralax) 17 gm PO DAILY LIANA Propranolol HCl (Inderal) 20 mg PO DAILY LIANA Thiamine HCl (Vitamin B-1) 100 mg PO DAILY [facility] HOME meds: DULoxetine [Cymbalta] 60 mg PO DAILY 01/14/13 omeprazole Magnesium [Nexium] 40 mg PO QDAC 01/14/13 Fluticasone/Salmeterol [Advair 250-50 Diskus] 1 puffs INH BID 01/14/13 RX: Fosinopril Sodium 10 mg PO DAILY 10/11/16 Levetiracetam [Keppra] 750 mg ORAL BID 07/23/18 Oxybutynin [Ditropan] 5 mg PO BID 07/23/18 RX: Folic Acid 1 mg PO DAILY 07/23/18 Thiamine HCl [Vitamin B-1] 100 mg PO DAILY 07/23/18 Amlodipine/Atorvastatin [Amlodipine-Atorvast 5-40 mg] 1 tab PO DAILY 08/23/18 Cyclobenzaprine [Flexeril] 10 mg PO BID PRN 08/23/18 Gabapentin 600 mg PO BID 08/23/18 LORazepam [Lorazepam] 3 mg PO BID PRN 08/23/18 Ondansetron Odt [Zofran] 4 mg TL Q8H PRN 08/23/18 RX: Buspirone HCl 30 mg PO DAILY 08/23/18 RX: Propranolol HCl 20 mg PO DAILY 08/23/18 RX: oxyCODONE [Roxicodone] 5 mg PO TID PRN 08/23/18 Objective - Vital Signs/Intake & Output Reviewed Vital Signs: Yes Vital Signs: Vital Signs x48h Temp Pulse Pulse Resp BP BP Pulse Ox 08/23/18 16:53 96 16 08/23/18 15:40 37.2 C 113 H 16 169/91 H 97 08/23/18 11:20 37 C 88 14 92 08/23/18 09:51 100 11 L 08/23/18 09:00 37.0 C 100 20 131/91 H 94 Intake & Output: Intake & Output 08/20/18 08/21/18 08/22/18 08/23/18 23:59 23:59 23:59 23:59 Intake Total 100 1350 Balance 100 1350 - Objective General Appearance: positive: Alert, Moderate distress, Anxious, Lethargic Eyes Bilateral: positive: PERRL Eyes: OU Conjunctivae pale ENT: positive: Pharynx nml, Dry mucous membranes Neck: positive: Thyroid nml, No JVD, Trachea midline Respiratory: positive: Chest non-tender, Wheezes, Rhonchi Cardiovascular: positive: Regular rate & rhythm, No gallop, Tachycardia, Systolic murmur, Decreased pulse(s) Peripheral Pulses: 1+ Radial (R), 1+ Radial (L) Abdomen: positive: Non-tender, Nml bowel sounds, Guarding Back: positive: Nml inspection Skin: positive: No rash, Warm, Dry Extremities: positive: Non-tender, Full ROM Neurologic/Psychiatric: positive: Disoriented to place, Disoriented to time, Weakness, Sensory loss, Depressed mood/affect Reflexes: Bicep (R): 2+, Bicep (L): 2+ - Lab Results Fish Bones: 08/23/18 06:15 08/23/18 06:15 Other Labs: Lab Results x24hrs 08/23/18 08/23/18 08/23/18 Range/Units 16:30 09:25 06:15 WBC (4.8-10.8) x10^3/uL RBC (4.20-5.40) 10^6/uL Hgb (12.0-16.0) g/dL Hct (37.0-47.0) % MCV (81.0-99.0) fL MCH (27.0-31.0) pg MCHC (32.0-36.0) g/dL RDW (12.0-15.0) % Plt Count (130-450) 10^3/uL MPV (7.9-10.8) fL Neut # (Auto) (1.5-6.6) 10^3/uL Lymph # (Auto) (1.5-3.5) 10^3/uL [place] # (Auto) (0.0-1.0) 10^3/uL Eos # (Auto) (0.0-0.7) 10^3/uL Baso # (Auto) (0.0-0.1) 10^3/uL Absolute Nucleated RBC x10^3/uL Nucleated RBC % /100WBC Bld Gas Analysis Time 1639 0930 Sample Site RIGHT RADIAL RIGHT RADIAL ABG pH 7.45 7.27 L (7.35-7.45) ABG pCO2 42 61 H* (34-45) mmHg ABG pO2 75 L 78 L (80-100) mmHg ABG HCO3 28.5 H 26.9 H (22.0-26.0) mmol/L ABG Total CO2 29.8 H 28.8 (21.0-29.0) MMOL/L ABG O2 Saturation 95 94 (94-98) % ABG Base Excess 4.0 H -1.3 (-2.0-3.0) mmol/L Tone Test POSITIVE POSITIVE VBG pH (7.31-7.41) VBG pCO2 (41-51) mmHg VBG pO2 (25-47) mmHg VBG HCO3 (23-28) mmol/L VBG Total CO2 (24-29) mmol/L VBG O2 Saturation (60-80) % VBG Base Excess (-2 - +2) mmol/L O2 Delivery Device NASAL CANNULA NASAL CANNULA O2 Liters/Min 1.50 3.50 LPM Sodium 128 L (135-145) mmol/L Potassium 4.4 (3.5-5.0) mmol/L Chloride 91 L (101-111) mmol/L Carbon Dioxide 29 (21-32) mmol/L Anion Gap 8.0 (6-13) BUN 14 (6-20) mg/dL Creatinine 0.7 (0.4-1.0) mg/dL Estimated GFR (MDRD) 85 L (>89) Glucose 170 H (70-100) mg/dL Calcium 8.9 (8.5-10.3) mg/dL Phosphorus (2.5-4.6) mg/dL Magnesium (1.7-2.8) mg/dL Total Bilirubin (0.2-1.0) mg/dL AST (10-42) IU/L ALT (10-60) IU/L Alkaline Phosphatase (42-121) IU/L Total Protein (6.7-8.2) g/dL Albumin (3.2-5.5) g/dL Globulin (2.1-4.2) g/dL Albumin/Globulin Ratio (1.0-2.2) Lipase (22-51) U/L Urine Color Urine Clarity (CLEAR) Urine pH (5.0-7.5) PH Ur Specific [place] (1.002-1.030) Urine Protein (NEGATIVE) mg/dL Urine Glucose (UA) (NEGATIVE) mg/dL Urine Ketones (NEGATIVE) mg/dL Urine Occult Blood (NEGATIVE) Urine Nitrite (NEGATIVE) Urine Bilirubin (NEGATIVE) Urine Urobilinogen (NORMAL) E.U./dL Ur Leukocyte Esterase (NEGATIVE) Urine RBC (0-5) /HPF Urine WBC (0-5) /HPF Ur Squamous Epith Cells (<= Few) Urine Bacteria (None Seen) /HPF Urine Casts /LPF Ur Microscopic Review Urine Culture Comments Salicylates mg/dL Urine Opiates Screen (NEGATIVE) Ur Oxycodone Screen (NEGATIVE) Urine Methadone Screen (NEGATIVE) Ur Propoxyphene Screen (NEGATIVE) Acetaminophen (10-30) ug/mL Ur Barbiturates Screen (NEGATIVE) Ur Tricyclics Screen (NEGATIVE) Ur Phencyclidine Scrn (NEGATIVE) Ur Amphetamine Screen (NEGATIVE) U Methamphetamines Scrn (NEGATIVE) U Benzodiazepines Scrn (NEGATIVE) Urine Cocaine Screen (NEGATIVE) U Cannabinoids Screen (NEGATIVE) Ethyl Alcohol mg/dL 08/23/18 08/23/18 08/22/18 Range/Units 06:15 06:00 22:30 WBC 4.4 L (4.8-10.8) x10^3/uL RBC 4.15 L (4.20-5.40) 10^6/uL Hgb 12.9 (12.0-16.0) g/dL Hct 38.1 (37.0-47.0) % MCV 91.7 (81.0-99.0) fL MCH 31.1 H (27.0-31.0) pg MCHC 34.0 (32.0-36.0) g/dL RDW 14.1 (12.0-15.0) % Plt Count 190 (130-450) 10^3/uL MPV 7.6 L (7.9-10.8) fL Neut # (Auto) 4.0 (1.5-6.6) 10^3/uL Lymph # (Auto) 0.3 L (1.5-3.5) 10^3/uL [place] # (Auto) 0.0 (0.0-1.0) 10^3/uL Eos # (Auto) 0.0 (0.0-0.7) 10^3/uL Baso # (Auto) 0.0 (0.0-0.1) 10^3/uL Absolute Nucleated RBC 0.00 x10^3/uL Nucleated RBC % 0.0 /100WBC Bld Gas Analysis Time Sample Site ABG pH (7.35-7.45) ABG pCO2 (34-45) mmHg ABG pO2 (80-100) mmHg ABG HCO3 (22.0-26.0) mmol/L ABG Total CO2 (21.0-29.0) MMOL/L ABG O2 Saturation (94-98) % ABG Base Excess (-2.0-3.0) mmol/L Tone Test VBG pH 7.276 L (7.31-7.41) VBG pCO2 57.5 H (41-51) mmHg VBG pO2 37.2 (25-47) mmHg VBG HCO3 26.2 (23-28) mmol/L VBG Total CO2 27.9 (24-29) mmol/L VBG O2 Saturation 66.9 (60-80) % VBG Base Excess -1.7 (-2 - +2) mmol/L O2 Delivery Device O2 Liters/Min LPM Sodium (135-145) mmol/L Potassium (3.5-5.0) mmol/L Chloride (101-111) mmol/L Carbon Dioxide (21-32) mmol/L Anion Gap (6-13) BUN (6-20) mg/dL Creatinine (0.4-1.0) mg/dL Estimated GFR (MDRD) (>89) Glucose (70-100) mg/dL Calcium (8.5-10.3) mg/dL Phosphorus 4.8 H (2.5-4.6) mg/dL Magnesium 1.8 (1.7-2.8) mg/dL Total Bilirubin (0.2-1.0) mg/dL AST (10-42) IU/L ALT (10-60) IU/L Alkaline Phosphatase (42-121) IU/L Total Protein (6.7-8.2) g/dL Albumin (3.2-5.5) g/dL Globulin (2.1-4.2) g/dL Albumin/Globulin Ratio (1.0-2.2) Lipase (22-51) U/L Urine Color Urine Clarity (CLEAR) Urine pH (5.0-7.5) PH Ur Specific [place] (1.002-1.030) Urine Protein (NEGATIVE) mg/dL Urine Glucose (UA) (NEGATIVE) mg/dL Urine Ketones (NEGATIVE) mg/dL Urine Occult Blood (NEGATIVE) Urine Nitrite (NEGATIVE) Urine Bilirubin (NEGATIVE) Urine Urobilinogen (NORMAL) E.U./dL Ur Leukocyte Esterase (NEGATIVE) Urine RBC (0-5) /HPF Urine WBC (0-5) /HPF Ur Squamous Epith Cells (<= Few) Urine Bacteria (None Seen) /HPF Urine Casts /LPF Ur Microscopic Review Urine Culture Comments Salicylates mg/dL Urine Opiates Screen (NEGATIVE) Ur Oxycodone Screen (NEGATIVE) Urine Methadone Screen (NEGATIVE) Ur Propoxyphene Screen (NEGATIVE) Acetaminophen (10-30) ug/mL Ur Barbiturates Screen (NEGATIVE) Ur Tricyclics Screen (NEGATIVE) Ur Phencyclidine Scrn (NEGATIVE) Ur Amphetamine Screen (NEGATIVE) U Methamphetamines Scrn (NEGATIVE) U Benzodiazepines Scrn (NEGATIVE) Urine Cocaine Screen (NEGATIVE) U Cannabinoids Screen (NEGATIVE) Ethyl Alcohol mg/dL 08/22/18 08/22/18 08/22/18 Range/Units 19:45 19:30 19:30 WBC 7.8 (4.8-10.8) x10^3/uL RBC 4.24 (4.20-5.40) 10^6/uL Hgb 13.1 (12.0-16.0) g/dL Hct 39.1 (37.0-47.0) % MCV 92.4 (81.0-99.0) fL MCH 30.8 (27.0-31.0) pg MCHC 33.4 (32.0-36.0) g/dL RDW 14.5 (12.0-15.0) % Plt Count 183 (130-450) 10^3/uL MPV 7.5 L (7.9-10.8) fL Neut # (Auto) 6.2 (1.5-6.6) 10^3/uL Lymph # (Auto) 1.0 L (1.5-3.5) 10^3/uL [place] # (Auto) 0.6 (0.0-1.0) 10^3/uL Eos # (Auto) 0.1 (0.0-0.7) 10^3/uL Baso # (Auto) 0.0 (0.0-0.1) 10^3/uL Absolute Nucleated RBC 0.00 x10^3/uL Nucleated RBC % 0.0 /100WBC Bld Gas Analysis Time Sample Site ABG pH (7.35-7.45) ABG pCO2 (34-45) mmHg ABG pO2 (80-100) mmHg ABG HCO3 (22.0-26.0) mmol/L ABG Total CO2 (21.0-29.0) MMOL/L ABG O2 Saturation (94-98) % ABG Base Excess (-2.0-3.0) mmol/L Tone Test VBG pH (7.31-7.41) VBG pCO2 (41-51) mmHg VBG pO2 (25-47) mmHg VBG HCO3 (23-28) mmol/L VBG Total CO2 (24-29) mmol/L VBG O2 Saturation (60-80) % VBG Base Excess (-2 - +2) mmol/L O2 Delivery Device O2 Liters/Min LPM Sodium 124 L (135-145) mmol/L Potassium 4.6 (3.5-5.0) mmol/L Chloride 88 L (101-111) mmol/L Carbon Dioxide 25 (21-32) mmol/L Anion Gap 11.0 (6-13) BUN 13 (6-20) mg/dL Creatinine 1.1 H (0.4-1.0) mg/dL Estimated GFR (MDRD) 50 L (>89) Glucose 107 H (70-100) mg/dL Calcium 8.9 (8.5-10.3) mg/dL Phosphorus (2.5-4.6) mg/dL Magnesium (1.7-2.8) mg/dL Total Bilirubin 0.4 (0.2-1.0) mg/dL AST 28 (10-42) IU/L ALT 17 (10-60) IU/L Alkaline Phosphatase 114 (42-121) IU/L Total Protein 6.8 (6.7-8.2) g/dL Albumin 4.0 (3.2-5.5) g/dL Globulin 2.8 (2.1-4.2) g/dL Albumin/Globulin Ratio 1.4 (1.0-2.2) Lipase 26 (22-51) U/L Urine Color YELLOW Urine Clarity SL. CLOUDY (CLEAR) Urine pH 5.5 (5.0-7.5) PH Ur Specific [place] >=1.030 H (1.002-1.030) Urine Protein 30 H (NEGATIVE) mg/dL Urine Glucose (UA) NEGATIVE (NEGATIVE) mg/dL Urine Ketones TRACE (NEGATIVE) mg/dL Urine Occult Blood NEGATIVE (NEGATIVE) Urine Nitrite NEGATIVE (NEGATIVE) Urine Bilirubin NEGATIVE (NEGATIVE) Urine Urobilinogen 0.2 (NORMAL) (NORMAL) E.U./dL Ur Leukocyte Esterase TRACE H (NEGATIVE) Urine RBC None Seen (0-5) /HPF Urine WBC 4-5 (0-5) /HPF Ur Squamous Epith Cells FEW Squamous (<= Few) Urine Bacteria Many H (None Seen) /HPF Urine Casts 0-2 Hyaline Casts /LPF Ur Microscopic Review INDICATED Urine Culture Comments INDICATED Salicylates < 6.0 mg/dL Urine Opiates Screen POSITIVE H (NEGATIVE) Ur Oxycodone Screen POSITIVE H (NEGATIVE) Urine Methadone Screen NEGATIVE (NEGATIVE) Ur Propoxyphene Screen NEGATIVE (NEGATIVE) Acetaminophen < 10 L (10-30) ug/mL Ur Barbiturates Screen NEGATIVE (NEGATIVE) Ur Tricyclics Screen POSITIVE H (NEGATIVE) Ur Phencyclidine Scrn NEGATIVE (NEGATIVE) Ur Amphetamine Screen NEGATIVE (NEGATIVE) U Methamphetamines Scrn NEGATIVE (NEGATIVE) U Benzodiazepines Scrn POSITIVE H (NEGATIVE) Urine Cocaine Screen NEGATIVE (NEGATIVE) U Cannabinoids Screen NEGATIVE (NEGATIVE) Ethyl Alcohol < 5.0 mg/dL ABX Reporting Has patient been on IV antibiotics over the past 48 hours?: Yes Sepsis Event Note (H) - Evaluation Current Stage of Sepsis: Ruled out Assessment/Plan - Problem List (1) Acute respiratory failure with hypoxia Impression: - Patient has known COPD, but is also on several sedating medications (polypharmacy) - Continues to have tobacco dependence - Scopolamine patch as needed Duoneb ordered prn Solumedrol scheduled Will assess for home oxygen (2) Altered mental status Impression: - Upon arrival to the ED, the patient was noted as being obtunded, likely due to polypharmacy vs. COPD exacerbation - Ph per venous blood gas was 7.2 upon admission, so it was repeated and remained similar to the admitting value - RT adjusted oxygen lower as she was also only breathing at a rate of 11 - Repeat value was normal at 7.4 and mentation improved Plan: Avoid giving too much oxygen as she may be a CO2 retainer, hold some of her home meds and add gradually Qualifiers: Altered mental status type: somnolence Qualified Code(s): R40.0 - Somnolence (3) COPD (chronic obstructive pulmonary disease) Impression: - Patient is prescribed Spiriva, advair, and proair at home - Since taking a truck load of pills already, reluctant of prescribing Singular, but this would be the ideal treatment for COPD - Continue IV steroids, daily Rocephin empiric treatment, routine RT care Plan: Continue xopenex TID and PRN, consider singular, and monitor breathing. Qualifiers: COPD type: unspecified COPD Qualified Code(s): J44.9 - Chronic obstructive pulmonary disease, unspecified (4) Compression fracture of T7 vertebra Impression: - Pain management contract last accessed on 08/20/2018 - poly-pharmacy, will attempt to minimize opiate use, but very unlikely given her fdc use and reasons for use - Imaging shows: Severe T7 compression fracture appears more chronic, new compared to the prior CT. Mild posterior protrusion of bone effacing the anterior thecal sac without central stenosis. - In history diagnoses listed are chronic pain, reflex sympathetic dystrophy of lower extremity- left foot, panic disorder and has a disabled parking sticker Plan: Continue to treat pain, oxycodone resumed this evening, and the patient may need a brace (5) Depression Impression: - On cymbalta, flexeril, buspirone, and remeron - Several agents are on hold Plan: Monitor for improved mental status, gradually add agents back in (6) GERD (gastroesophageal reflux disease) Impression: - Takes Nexium at home daily - Aggravating finding of a small hiatal hernia on a chest CTA - Now on protonix while in the hospital Plan: Continue to monitor for complaints of heart burn (7) Hyponatremia Impression: - Admitting sodium down to 123, now improved at 128 - likely due to fluid imbalance, low dietary solute intake or intravascular depletion - Urine sodium, urine osmo in the AM to be collected close to AM labs Plan: Monitor for improvement, await urine studies
[2018-08-23] MEDS: ACETAMINOPHEN 325 MG TABLET PO PRN (17:35)
[2018-08-23] MEDS: LORazepam 1 MG TABLET PO PRN (17:35)
[2018-08-23] MEDS: oxyCODONE 5 MG TABLET PO PRN (20:07)
[2018-08-23] MEDS: levETIRAcetam 250 MG TABLET PO SCH (21:08)
[2018-08-23] MEDS ORDERED: cefTRIAXone 2 GM VIAL IVP SCH (22:00)
[2018-08-23] MEDS ORDERED: WATER FOR INJECTION,STERILE 0 ML ONE (22:32)
[2018-08-23] MEDS: LEVALBUTEROL 1.25 MG/3 ML NEB INH SCH (22:35)
[2018-08-24] MEDS: SODIUM CHLORIDE FLUSH 0.9% 10 ML SYRINGE IVP SCH ×2 (00:30→10:22)
[2018-08-24] MEDS: LORazepam 1 MG TABLET PO PRN (06:49)
[2018-08-24] MEDS: methylPREDNISolone SUCCINATE 40 MG/ML VIAL IVP SCH ×2 (06:49→13:58)
[2018-08-24] MEDS: PANTOPRAZOLE 40 MG TABLET PO SCH (06:49)
[2018-08-24] MEDS: SODIUM CHLORIDE 0.9% 1,000 ML IV SCH ×2 (06:55→13:55)
[2018-08-24 07:27] LABS: BASOPHILS % (AUTO) 0.1 %; LYMPHOCYTES # (AUTO) 0.6 10^3/uL (1.5-3.5); LYMPHOCYTES % (AUTO) 7.8 %; MEAN CORPUSCULAR HEMOGLOBIN 30.2 pg (27.0-31.0); MEAN CORPUSCULAR HGB CONC 33.1 g/dL (32.0-36.0); MEAN CORPUSCULAR VOLUME 91.3 fL (81.0-99.0); MEAN PLATELET VOLUME 7.8 fL (7.9-10.8); MONOCYTES # (AUTO) 0.4 10^3/uL (0.0-1.0); MONOCYTES % (AUTO) 5.1 %; NEUTROPHILS # (AUTO) 6.8 10^3/uL (1.5-6.6); PLT - PLATELET COUNT 231 10^3/uL (130-450); RED CELL DISTRIBUTION WIDTH 14.3 % (12.0-15.0); WHITE BLOOD COUNT 7.8 x10^3/uL (4.8-10.8)
[2018-08-24 07:36] LABS: CREATININE 0.5 mg/dL (0.4-1.0)
[2018-08-24] MEDS ORDERED: cefTRIAXone 1 GM in SODIUM CHLORIDE 0.9% MINIBAG 100 ML IV SCH (09:00)
[2018-08-24] MEDS: LEVALBUTEROL 1.25 MG/3 ML NEB INH SCH ×3 (09:20→19:44)
[2018-08-24] MEDS: NICOTINE 14 MG PATCH TOP SCH (10:12)
[2018-08-24] MEDS: POLYETHYLENE GLYCOL 3350 17 GM PACKET PO SCH (10:12)
[2018-08-24] MEDS: THIAMINE 100 MG TABLET PO SCH (10:12)
[2018-08-24] MEDS: ENOXAPARIN 40 MG/0.4 ML SYRINGE SUBQ SCH (10:13)
[2018-08-24] MEDS: levETIRAcetam 250 MG TABLET PO SCH ×2 (10:13→20:26)
[2018-08-24] MEDS: PROPRANOLOL 10 MG TABLET PO SCH (10:21)
[2018-08-24] MEDS: FOLIC ACID 1 MG TABLET PO SCH (10:21)
[2018-08-24] MEDS: oxyCODONE 5 MG TABLET PO PRN (10:34)
[2018-08-24] MEDS ORDERED: CYCLOBENZAPRINE 10 MG TABLET PO PRN (13:27)
[2018-08-24] MEDS: OXYBUTYNIN 5MG TABLET PO SCH (20:26)
[2018-08-24] MEDS: GABAPENTIN 300 MG CAPSULE PO SCH (20:27)
[2018-08-24] MEDS ORDERED: GABAPENTIN 300 MG CAPSULE PO SCH (21:00)
[2018-08-25 05:53] LABS: BASOPHILS % (AUTO) 0.4 %; EOSINOPHILS % (AUTO) 0.1 %; HGB - HEMOGLOBIN 13.6 g/dL (12.0-16.0); LYMPHOCYTES # (AUTO) 1.8 10^3/uL (1.5-3.5); LYMPHOCYTES % (AUTO) 17.7 %; MEAN CORPUSCULAR HEMOGLOBIN 30.4 pg (27.0-31.0); MEAN CORPUSCULAR HGB CONC 33.2 g/dL (32.0-36.0); MEAN CORPUSCULAR VOLUME 91.5 fL (81.0-99.0); MEAN PLATELET VOLUME 7.4 fL (7.9-10.8); MONOCYTES # (AUTO) 0.9 10^3/uL (0.0-1.0); MONOCYTES % (AUTO) 9.1 %; NEUTROPHILS # (AUTO) 7.5 10^3/uL (1.5-6.6); NEUTROPHILS % (AUTO) 72.7 %; PLT - PLATELET COUNT 229 10^3/uL (130-450); RED BLOOD COUNT 4.47 10^6/uL (4.20-5.40); RED CELL DISTRIBUTION WIDTH 14.4 % (12.0-15.0); WHITE BLOOD COUNT 10.4 x10^3/uL (4.8-10.8)
[2018-08-25 06:04] LABS: CALCIUM 8.9 mg/dL (8.5-10.3); CREATININE 0.5 mg/dL (0.4-1.0)
[2018-08-25] MEDS: PANTOPRAZOLE 40 MG TABLET PO SCH (06:11)
[2018-08-25 07:51] VITALS: BP 172/95
[2018-08-25] MEDS ORDERED: predniSONE 20 MG TABLET PO SCH (08:00)
[2018-08-25] MEDS: ENOXAPARIN 40 MG/0.4 ML SYRINGE SUBQ SCH (08:02)
[2018-08-25] MEDS: GABAPENTIN 300 MG CAPSULE PO SCH (08:03)
[2018-08-25] MEDS: levETIRAcetam 250 MG TABLET PO SCH (08:03)
[2018-08-25] MEDS: OXYBUTYNIN 5MG TABLET PO SCH (08:03)
[2018-08-25] MEDS: FOLIC ACID 1 MG TABLET PO SCH (08:04)
[2018-08-25] MEDS: THIAMINE 100 MG TABLET PO SCH (08:04)
[2018-08-25] MEDS: POLYETHYLENE GLYCOL 3350 17 GM PACKET PO SCH (08:04)
[2018-08-25] MEDS: ACETAMINOPHEN 325 MG TABLET PO PRN (08:04)
[2018-08-25] MEDS: NICOTINE 14 MG PATCH TOP SCH (08:05)
[2018-08-25] MEDS: oxyCODONE 5 MG TABLET PO PRN (08:13)
[2018-08-25] MEDS: PROPRANOLOL 10 MG TABLET PO SCH (08:14)
--- NOTE | 2018-08-25 08:14 | PROVIDER PROGRESS NOTE ---
Subjective - Prog Note Date Prog Note Date: 08/24/18 Prog Note Time: 08:12 - Subjective Pt reports feeling: Improved Subjective: Codey wonders if she can return home today, but we are awaiting urine culture results and her respiratory status is still fragile. She is agreeable to staying. She denies chest pain, nausea, vomiting, a rash, or a new productive cough. She states she is not hungry, but his is a common problem for her. Current Medications - Current Medications Current Medications: Active Medications: Acetaminophen (Tylenol) 650 mg PO Q4HR PRN Buspirone HCl (Buspar) 30 mg PO DAILY LIANA Cyclobenzaprine HCl (Flexeril) 10 mg PO BID PRN Duloxetine HCl (Cymbalta) 60 mg PO DAILY LIANA Enoxaparin Sodium (Lovenox) 40 mg SUBQ DAILY LIANA Folic Acid () 1 mg PO DAILY LIANA Gabapentin (Neurontin) 300 mg PO BID LIANA Levalbuterol HCl (Xopenex) 1.25 mg INH Q4H PRN Levalbuterol HCl (Xopenex) 1.25 mg INH RTTID LIANA Levetiracetam (Keppra) 750 mg PO BID LIANA Lisinopril (Zestril) 10 mg PO DAILY LIANA Lorazepam (Ativan) 3 mg PO BID PRN Nicotine (Nicoderm) 1 patch TOP DAILY LIANA Oxybutynin Chloride (Ditropan) 5 mg PO BID LIANA Oxycodone HCl (Roxicodone) 5 mg PO TID PRN Pantoprazole Sodium (Protonix) 40 mg PO QDAC LIANA Polyethylene Glycol (Miralax) 17 gm PO DAILY LIANA Prednisone (Deltasone) 60 mg PO DAILYWM LIANA Propranolol HCl (Inderal) 20 mg PO DAILY LIANA Thiamine HCl (Vitamin B-1) 100 mg PO DAILY LIANA Rocephin IV 1 Gm Q24H scheduled- now discontinued after this AM's dose HOME meds: DULoxetine [Cymbalta] 60 mg PO DAILY 01/14/13 Esomeprazole Magnesium [Nexium] 40 mg PO QDAC 01/14/13 Fluticasone/Salmeterol [Advair 250-50 Diskus] 1 puffs INH BID 01/14/13 Fosinopril Sodium 10 mg PO DAILY 10/11/16 Folic Acid 1 mg PO DAILY 07/23/18 Levetiracetam [Keppra] 750 mg ORAL BID 07/23/18 Oxybutynin [Ditropan] 5 mg PO BID 07/23/18 Thiamine HCl [Vitamin B-1] 100 mg PO DAILY 07/23/18 Amlodipine/Atorvastatin [Amlodipine-Atorvast 5-40 mg] 1 tab PO DAILY 08/23/18 Buspirone HCl 30 mg PO DAILY 08/23/18 Cyclobenzaprine [Flexeril] 10 mg PO BID PRN 08/23/18 Gabapentin 600 mg PO BID 08/23/18 LORazepam [Lorazepam] 3 mg PO BID PRN 08/23/18 Ondansetron Odt [Zofran] 4 mg TL Q8H PRN 08/23/18 Propranolol HCl 20 mg PO DAILY 08/23/18 oxyCODONE [Roxicodone] 5 mg PO TID PRN 08/23/18 Objective - Vital Signs/Intake & Output Reviewed Vital Signs: Yes Vital Signs: Vital Signs x48h Temp Pulse Resp BP BP Pulse Ox 08/25/18 07:45 37.1 C 89 20 172/95 H 170/93 H 93 08/25/18 03:15 37.4 C 108 H 18 129/81 H 93 Intake & Output: Intake & Output 08/22/18 08/23/18 08/24/18 08/25/18 23:59 23:59 23:59 23:59 Intake Total 100 2750 2661.6 240 Output Total 800 3550 Balance 100 1950 -888.4 240 - Objective General Appearance: positive: No acute distress, Alert Eyes Bilateral: positive: Normal inspection, PERRL Eyes: OU Conjunctivae pale ENT: positive: Pharynx nml, No signs of dehydration Neck: positive: Thyroid nml, No JVD, Trachea midline Respiratory: positive: Chest non-tender, No respiratory distress, Breath sounds nml Cardiovascular: positive: Regular rate & rhythm, No gallop, Tachycardia, Systolic murmur Peripheral Pulses: 1+ Radial (R), 1+ Radial (L) Abdomen: positive: Non-tender, Nml bowel sounds Back: positive: Nml inspection Skin: positive: Color nml, No rash, Warm, Dry Extremities: positive: Non-tender, Full ROM, Nml appearance, No pedal edema Neurologic/Psychiatric: positive: Oriented x3, CN's nml (2-12), Motor nml, Sensation nml, Mood/affect nml, Weakness Reflexes: Bicep (R): 3+, Bicep (L): 3+ - Lab Results Fish Bones: 08/25/18 05:31 08/25/18 05:31 Other Labs: Lab Results x24hrs 08/25/18 08/25/18 Range/Units 05:31 05:31 WBC 10.4 (4.8-10.8) x10^3/uL RBC 4.47 (4.20-5.40) 10^6/uL Hgb 13.6 (12.0-16.0) g/dL Hct 40.9 (37.0-47.0) % MCV 91.5 (81.0-99.0) fL MCH 30.4 (27.0-31.0) pg MCHC 33.2 (32.0-36.0) g/dL RDW 14.4 (12.0-15.0) % Plt Count 229 (130-450) 10^3/uL MPV 7.4 L (7.9-10.8) fL Neut # (Auto) 7.5 H (1.5-6.6) 10^3/uL Lymph # (Auto) 1.8 (1.5-3.5) 10^3/uL Campbell # (Auto) 0.9 (0.0-1.0) 10^3/uL Eos # (Auto) 0.0 (0.0-0.7) 10^3/uL Baso # (Auto) 0.0 (0.0-0.1) 10^3/uL Absolute Nucleated RBC 0.00 x10^3/uL Nucleated RBC % 0.0 /100WBC Sodium 129 L (135-145) mmol/L Potassium 2.8 L (3.5-5.0) mmol/L Chloride 88 L (101-111) mmol/L Carbon Dioxide 32 (21-32) mmol/L Anion Gap 9.0 (6-13) BUN 8 (6-20) mg/dL Creatinine 0.5 (0.4-1.0) mg/dL Estimated GFR (MDRD) 125 (>89) Glucose 114 H (70-100) mg/dL Calcium 8.9 (8.5-10.3) mg/dL ABX Reporting Has patient been on IV antibiotics over the past 48 hours?: Yes Sepsis Event Note (H) - Evaluation Current Stage of Sepsis: Ruled out Assessment/Plan - Problem List (1) Acute respiratory failure with hypoxia Impression: - Patient has known COPD, but is also on several sedating medications (polypharmacy) - Continues to have tobacco dependence - Duoneb ordered prn - Solumedrol has not been indicated - Now weaning off oxygen only 1L nasal cannula Plan: Evaluate for home oxygen upon discharge, continue respiratory cares. (2) Altered mental status Impression: - Upon arrival to the ED, the patient was noted as being obtunded, likely due to polypharmacy vs. COPD exacerbation - Ph per venous blood gas was 7.2 upon admission, so it was repeated and remained similar to the admitting value - RT adjusted oxygen lower as she was also only breathing at a rate of 11 - Repeat value was normal at 7.4 and mentation improved - Mental status nearly back to baseline today on exam, chronic short term memory impairment Plan: Avoid giving too much oxygen as she may be a CO2 retainer, hold some of her home meds and add gradually Qualifiers: Altered mental status type: somnolence Qualified Code(s): R40.0 - Somnolence (3) COPD (chronic obstructive pulmonary disease) Impression: - Patient is prescribed Spiriva, advair, and proair at home - Since taking a truck load of pills already, reluctant of prescribing Singular, but this would be the ideal treatment for COPD - Continue IV steroids, daily Rocephin empiric treatment, routine RT care Plan: Continue xopenex TID and PRN, consider singular, and monitor breathing. 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 Mild posterior protrusion of bone effacing the anterior thecal sac without central stenosis. - In history diagnoses listed are chronic pain, reflex sympathetic dystrophy of lower extremity- left foot, panic disorder and has a disabled parking sticker Plan: Continue to treat pain, oxycodone resumed (5) Depression Impression: - On cymbalta, flexeril, buspirone, and remeron - Several agents were held upon admission, now resumed as her mentation has improved Plan: Continue regular home meds (6) GERD (gastroesophageal reflux disease) Impression: - Takes Nexium at home daily - Aggravating finding of a small hiatal hernia on a chest CTA - Now on protonix while in the hospital Plan: Continue to monitor for complaints of heart burn (7) Hyponatremia Impression: - Admitting sodium 128 - likely due to fluid imbalance, low dietary solute intake or intravascular depletion - Urine sodium, urine osmo non-contributory - Mentation is nearly at baseline today Plan: Monitor for improvement, routine labs
[2018-08-25] MEDS ORDERED: busPIRone 5 MG TABLET PO SCH (09:00)
[2018-08-25] MEDS: LEVALBUTEROL 1.25 MG/3 ML NEB INH SCH ×2 (09:00→12:46)
[2018-08-25] MEDS ORDERED: DULoxetine 30 MG CAPSULE PO SCH (09:00)
[2018-08-25] MEDS ORDERED: LISINOPRIL 5 MG TABLET PO SCH (09:00)
[2018-08-25] MEDS ORDERED: POTASSIUM CHLORIDE 20 MEQ TABLET PO SCH (10:26)
--- NOTE | 2018-08-25 10:30 | Discharge Plan ---
Discharge Plan Disposition: 01 Home, Self Care Condition: Good Prescriptions: Montelukast [Singulair] 10 mg PO QPM #30 tablet Nicotine 14 mg Patch [Nicoderm] 1 patch TOP DAILY #7 patch Nicotine 7 mg Patch [Nicoderm] 1 each TOP Q24H #7 patch Prednisone 10 mg PO DAILY #14 tab.ds.pk Saccharomyces Boulardii [Florastor] 250 mg PO BID #60 capsule Sulfamethox/Trimeth 800/160 [Bactrim Ds] 1 each PO BID #20 tablet Diet: Regular Activity Restrictions: Activity as Tolerated Shower Restrictions: No Weight Bearing: Full Weight Additional Instructions or Follow Up instructions: You were admitted for a COPD exacerbation and were also found to have a bladder infection. Please continue a probiotic (yogurt pill), an antibiotic, and a steroid taper at home. You failed a walking oxygen study proving that you should use oxygen while doing activity. PLEASE be very careful not to use the oxygen when you are resting due to the finding of CO2 Retention in which you may stop breathing if you get too much oxygen. Since you have COPD, I have referred you to our Pulmonary rehab program, which will help improve the quality of your life and help teach how to make the most of each day with your lung disease. To best treat COPD, I have sent a pill called Singular to the pharmacy as it reduces the chances of broncho-spasm or constriction of your wind pipe. Imaging showed a recent T-7 and T-8 compression fracture, which will make moving around or sitting up for long periods very painful. This type of fracture may not be surgically repaired and is usually treated with pain medications just like you are already on. Please see your PCP within one week. Follow-Up Care: [facility] - Pulmonary No Smoking: If you smoke, Please STOP! Call for help.
[2018-08-25] MEDS ORDERED: FUROSEMIDE 40 MG TABLET PO SCH (10:33)
[2018-08-25] MEDS ORDERED: MAGNESIUM OXIDE 400 MG TABLET PO SCH (11:00)
[2018-08-25] MEDS ORDERED: SULFAMETH/TRIMETH DS 800/160 MG TABLET PO SCH (11:00)
--- NOTE | 2018-08-25 14:45 | DISCHARGE SUMMARY ---
"Discharge Summary Admit Date: 08/23/18 Discharge Date: 08/25/18 Discharging Provider: ARNOLDO More Primary Care Provider: Conor Soria Code Status: Attempt Resuscitation Condition at Discharge: Good Discharge Disposition: 01 Home, Self Care - DIAGNOSES Admission Diagnoses: Acute respiratory failure with hypoxia (J96.01) Chronic obstructive pulmonary disease, unspecified (J44.9) Other nonspecific abnormal finding of lung field (R91.8) Wedge compression fracture of T7-T8 vertebra, init (S22.060A) Unspecified convulsions (R56.9) Anxiety disorder, unspecified (F41.9) Major depressive disorder, single episode, unspecified (F32.9) Hypo-osmolality and hyponatremia (E87.1) Essential (primary) hypertension (I10) Hyperlipidemia, unspecified (E78.5) Other assisted (current) drug therapy (Z79.899) Gastro-esophageal reflux disease without esophagitis (K21.9) Discharge Diagnoses with Status of Each Condition: Acute respiratory failure with hypoxia (J96.01) resolved COPD (chronic obstructive pulmonary disease) (J44.9) chronic, home O2 ordered with activity Compression fracture of T7 vertebra (S22.060A) new on this admit, recommend follow up with PCP Depression (F32.9) chronic, stable Hyponatremia (E87.1) chronic, stable GERD (gastroesophageal reflux disease) (K21.9) chronic, stable Altered mental state (R41.82) resolved E. coli UTI (N39.0) CO2 retention (E87.2) new on this admit, continue Bactrim at home x10 days, probiotic Polypharmacy (Z79.899) chronic, stable Seizure disorder (G40.909)chronic, stable On home oxygen therapy (Z99.81) new on this admission-pending - HPI History of Present Illness: HPI per Dr. Leonard: Patient on 08/22/18 at 2345pm The account below was obtained from the HPI of the ED note because the patient is still somewhat confused. and is not a very reliable historian currently. In addition family was not at bedside and cannot be reach at this time. (This is a 62-year-old woman who has a recent new diagnosis of szs, may be re lated to some alcohol withdrawal. She is on Keppra. Has not seen a neurologist yet. She had a productive cough and shortness of breath over the last days. They found her obtunded in the room today acting like she was postictal. The patient is confused but arouses to voice and answer simple questions.) During my exam, the patient report that when her family found her obtunded, she could hear and understand what they were saying but was unable to respond. She could not remember the name of the hospital she was currently in. She also thought she was in [place]. 24 hours prior, it appears she was at her baseline, at which she is independent of activities of daily living. She denied chest pain, MAURICIO, abd pain, n/v/d, fever or chills. She was found to have an O2Sat of 82%. As a result she is being admitted for further management. - CONSULTS | PROCEDURES Consultations: Pulmonary rehab outpatient referral ordered - HOSPITAL COURSE Hospital Course: Upon admission, the patient was dehydrated, obtunded, and required oxygen. Her PH was low at 7.27, acidosis with a low respiratory rate of 11. Her oxygen flow rate was reduced which improved her PH to 7.44. It was concluded that she was a CO2 Retainer. A urine sample was cultured out as e. coli and she was given IV rocephin, transitioned to PO Bactrim. She was given IV steroids transitioned to PO prednisone to be continued at home tappered. She was found to have a fairly new T7 and T8 compression fracture, with an unknown cause. Prior to discharge an oxygen walking study was performed by our respiratory therapy team: A [id number] exam was performed and the patient was informed of the results and cautioned to remove her oxygen at rest with her potential of CO2 retention. Results shared as follows: While at rest the patient had a normal oxygen saturation of 96% on room air. After ambulating several feet, the patient becam e hypoxic with an oxygen saturation of 88% on room air at which time 2L of oxygen was applied and the patient nicely responded to 94% with ambulation. I am ordering home oxygen per nasal cannula to be worn with activity to treat her chronic COPD. The patient was medically stable, all prescriptions were sent to her pharmacy of choice. We were awaiting final oxygen delivery arrangements, but she will be transported via private car home with her . - ALLERGIES Allergies/Adverse Reactions: Allergies Allergy/AdvReac Type Severity Reaction Status Date / Time codeine Allergy Hives Verified 07/23/18 15:32 - MEDICATIONS Home Medications: Ambulatory Orders Medication Instructions Recorded Confirmed DULoxetine [Cymbalta] 60 mg PO DAILY 01/14/13 08/23/18 Esomeprazole Magnesium [Nexium] 40 mg PO QDAC 01/14/13 08/23/18 Fluticasone/Salmeterol [Advair 1 puffs INH BID 01/14/13 08/23/18 250-50 Diskus] Fosinopril Sodium 10 mg PO DAILY 10/11/16 08/23/18 Albuterol Sulf [Ventolin Hfa 1 - 2 puffs INH Q4HR PRN #1 inhaler 07/23/18 08/23/18 Inhaler] Folic Acid 1 mg PO DAILY 07/23/18 08/23/18 Levetiracetam [Keppra] 750 mg ORAL BID 07/23/18 08/23/18 Oxybutynin [Ditropan] 5 mg PO BID 07/23/18 08/23/18 Thiamine HCl [Vitamin B-1] 100 mg PO DAILY 07/23/18 08/23/18 Amlodipine/Atorvastatin 1 tab PO DAILY 08/23/18 08/23/18 [Amlodipine-Atorvast 5-40 mg] Buspirone HCl 30 mg PO DAILY 08/23/18 08/23/18 Cyclobenzaprine [Flexeril] 10 mg PO BID PRN 08/23/18 08/23/18 Gabapentin 600 mg PO BID 08/23/18 08/23/18 LORazepam [Lorazepam] 3 mg PO BID PRN 08/23/18 08/23/18 Ondansetron Odt [Zofran Odt] 4 mg TL Q8H PRN 08/23/18 08/23/18 Propranolol HCl 20 mg PO DAILY 08/23/18 08/23/18 oxyCODONE [Roxicodone] 5 mg PO TID PRN 08/23/18 08/23/18 Montelukast [Singulair] 10 mg PO QPM #30 tablet 08/25/18 Nicotine 14 mg Patch [Nicoderm] 1 patch TOP DAILY #7 patch 08/25/18 Nicotine 7 mg Patch [Nicoderm] 1 each TOP Q24H #7 patch 08/25/18 Prednisone 10 mg PO DAILY #14 tab.ds.pk 08/25/18 Saccharomyces Boulardii [Florastor] 250 mg PO BID #60 capsule 08/25/18 Sulfamethox/Trimeth 800/160 1 each PO BID #20 tablet 08/25/18 [Bactrim Ds] oxyCODONE [Roxicodone] 5 mg PO Q6H PRN #5 tablet 08/25/18 - PHYSICAL EXAM AT DISCHARGE General Appearance: positive: No acute distress, Alert Eyes Bilateral: positive: Normal inspection, PERRL, Other (chronic lazy eye, left ) ENT: positive: Pharynx nml Neck: positive: Thyroid nml, Trachea midline Respiratory: positive: Chest non-tender, No respiratory distress, Other (scattered crackles, no wheezing) Cardiovascular: positive: Regular rate & rhythm, No gallop, Systolic murmur Peripheral Pulses: positive: 2+ Abdomen: positive: Non-tender, Nml bowel sounds Back: positive: Nml inspection Skin: positive: Color nml, No rash, Warm, Dry Extremities: positive: Non-tender, Full ROM, Nml appearance, No pedal edema Neurologic/Psychiatric: positive: Oriented x3, CN's nml (2-12), Motor nml, Sens ation nml, Mood/affect nml, Other (baseline short term memory loss) Reflexes: Bicep (R): 3+, Bicep (L): 3+ - LABS Result Diagrams: 08/25/18 05:31 08/25/18 05:31 - SEPSIS Current Stage of Sepsis: Ruled out - FOLLOW UP Follow Up: Disposition: Home with oxygen, Self Care Prescriptions: Montelukast [Singulair] 10 mg PO QPM #30 tablet Nicotine 14 mg Patch [Nicoderm] 1 patch TOP DAILY #7 patch Nicotine 7 mg Patch [Nicoderm] 1 each TOP Q24H #7 patch Prednisone 10 mg PO DAILY #14 tab.ds.pk Saccharomyces Boulardii [Florastor] 250 mg PO BID #60 capsule Sulfamethox/Trimeth 800/160 [Bactrim Ds] 1 each PO BID #20 tablet Additional Instructions or Follow Up instructions: You were admitted for a COPD exacerbation and were also found to have a bladder infection. Please continue a probiotic (yogurt pill), an antibiotic, and a steroid taper at home. You failed a walking oxygen study proving that you should use oxygen while doing activity. PLEASE be very careful not to use the oxygen when you are resting due to the finding of CO2 Retention in which you may stop breathing if you get too much oxygen. Since you have COPD, I have referred you to our Pulmonary rehab program, which will help improve the quality of your life and help teach how to make the most of each day with your lung disease. To best treat COPD, I have sent a pill called Singular to the pharmacy as it reduces the chances of broncho-spasm or constriction of your wind pipe. Imaging showed a recent T-7 and T-8 compression fracture, which will make moving around or sitting up for long periods very painful. This type of fracture may no t be surgically repaired and is usually treated with pain medications just like you are already on. Please see your PCP within one week. - TIME SPENT Time Spent in Discharge (Minutes): 65"
== END 2018-08-25 16:20 | disposition home or self-care (01) | DRG 189 ==
LOC: EDUNIT# → ED 18:42 → OBS 08-23 00:26 → OBSVTOIN 08-23 08:59 → OBS 08-23 15:07 → MS2 08-23 15:07 → UNDODISIN 08-25 16:20
PROVIDERS: ADMIT Internal Medicine; ATTEND Nurse Practitioner
DX: J96.01 Acute respiratory failure with hypoxia (principal); J44.1 Chronic obstructive pulmonary disease with (acute) exacerbation; M48.54XA Collapsed vertebra, not elsewhere classified, thoracic region, initial encounter for fracture; E87.1 Hypo-osmolality and hyponatremia; F10.239 Alcohol dependence with withdrawal, unspecified; I10 Essential (primary) hypertension; E78.00 Pure hypercholesterolemia, unspecified; G40.909 Epilepsy, unspecified, not intractable, without status epilepticus; K21.9 Gastro-esophageal reflux disease without esophagitis; K44.9 Diaphragmatic hernia without obstruction or gangrene; F32.9 Major depressive disorder, single episode, unspecified; F41.9 Anxiety disorder, unspecified; M79.7 Fibromyalgia; G89.29 Other chronic pain; Z90.710 Acquired absence of both cervix and uterus; Z88.6 Allergy status to analgesic agent; F17.200 Nicotine dependence, unspecified, uncomplicated; R40.0 Somnolence; R91.8 Other nonspecific abnormal finding of lung field; N30.90 Cystitis, unspecified without hematuria; B96.20 Unspecified Escherichia coli [E. coli] as the cause of diseases classified elsewhere; Z79.899 Other long term (current) drug therapy; E86.0 Dehydration; R53.82 Chronic fatigue, unspecified; E78.5 Hyperlipidemia, unspecified; F41.0 Panic disorder [episodic paroxysmal anxiety]
CPT/HCPCS: 36415; 36600; 70450; 71045; 71275; 80048; 80053; 80306; 80307; 80320; 80329; 81001; 82803; 83690; 83735; 83880; 83935; 84100; 84300; 85025; 87086; 87181; 93005; 94640; 94761; 96361; 96365; 96375; 96376; 99284; 99285; A9270; G0378; J1650; J7512; J8499; Q9967; 81003

== ENCOUNTER 2018-10-07 13:18 | Outpatient (CLI) | payer BC | END 2018-10-07 13:19 | disposition E | LOC: EMS 13:18 | PROVIDERS: ATTEND Surgery | DX: I46.9 Cardiac arrest, cause unspecified (principal) | CPT/HCPCS: A0425; A0433 ==